=== PATIENT | male | born 1950 ===

== ENCOUNTER 2024-12-31 08:17 | Inpatient (IN) | payer OTHER, SELFPAY ==
--- NOTE | 2024-11-26 14:11 | CM ---
Demographics: confirmed
Living situation: Lives with , Tierra
Support Person Post Operatively: Tierra
[facility]
SNF: [facility]
Outpatient: Home care or placement
Has patient purchased required equipment: yes
PCP: Active
Pharmacy: [facility]
Post Operative Discharge Plan: Placement or extended home care.
[2024-12-07 12:48] VITALS: BMI 30.2
--- NOTE | 2024-12-07 14:28 | CM ---
CM was updated by orthopedic PA that patient will need home care. Patient has been known to [facility]. CM sent preliminary referral via [facility] to [facility].
[2024-12-07 15:05] LABS: Hematocrit 42.5 % (39.0-52.0); Hemoglobin 14.4 g/dL (13.0-18.0); Mean Corp Hgb Conc. 33.9 g/dL (33.0-37.0); Mean Corpuscular Volume 91.6 fL (80.0-94.0); Platelet Count 253 10^3/uL (130-400); Red Cell Dist. Width 13.1 % (11.5-14.5)
[2024-12-07 15:35] LABS: ALT (SGPT) < 10 U/L (0-50); AST (SGOT) 21 U/L (17-59); Albumin 4.4 g/dl (3.5-5.0); Alkaline Phosphatase 149 U/L (38-126); Blood Urea Nitrogen 20 mg/dl (9-20); Calcium 9.9 mg/dl (8.4-10.2); Carbon Dioxide 26 mmol/L (22-30); Chloride 107 mmol/L (98-107); Estimated Creatinine Clearance 84 ml/min; Glucose 82 mg/dl (70-99); Potassium 4.4 mmol/L (3.5-5.1); Sodium 137 mmol/L (135-145); Total Protein 6.7 g/dl (6.3-8.2); eGFR > 60.00
[2024-12-07 16:43] VITALS: BMI 30.2
[2024-12-08 10:19] LABS: Glycohemoglobin (HgbA1c) 5.6 % (4.0-5.6)
[2024-12-31] VITALS (14 sets, daily range): BP systolic 97–176; BP diastolic 57–93
[2024-12-31] MEDS: CELEBREX 200 MG PO (08:55)
[2024-12-31] MEDS: NORMOSOL-R/PLASMALYTE-A 1000 IV ×2 (09:15→16:10)
--- NOTE | 2024-12-31 09:51 | W.PN.ORTHO ---
Today's Communication / Plan
-
d/c when stable
Assessment
.
Dressing:
Clean, dry and intact.
Assessment:
Ambulatory dysfunction.
Parkinson's disease.
Balance and gait disturbance.
-Fall precautions
Recurrent and chronic bilateral DVT.
Factor V Leiden.
-Eliquis
-SCD contraindicated due to known residual clot/risk of propagation.
Coronary artery disease-LAD stent 2016.
-due to need for Eliquis, he will resume Plavix POD#7 and remain on baby asa until that time.
Hx Staph infection s/p back surgery
-Cefadroxil OP Rx abx ppx
BPH
-Flomax standing order and prn
Plan
.
Surgery / Date: L TKA Dr Cole 12/31/24
DVT Prophylaxis: Other (Eliquis)
Activity:
Out of bed.
PT/OT
Discharge Plan: Home w/ VN
Vital Signs and Labs
.
Vital Signs and Labs:
Lab Results
12/07/24 13:03
12/07/24 13:03
Temp Pulse Resp BP Pulse Ox
98.5 F 66 16 174/90 99
12/31/24 08:49 12/31/24 08:49 12/31/24 08:49 12/31/24 08:49 12/31/24 08:49
--- NOTE | 2024-12-31 10:19 | W.DS.TRANS ---
DC Summary - Home Service Consultant
-
Discharge Instructions:
Discharge Diagnosis/Procedures L TKA Dr Cole 12/31/24
Diet As tolerated
Activity With Walker
Driving Restrictions No driving
Bathing Restrictions OK to Shower
Other Services PT,VN
Instructions:
Stand-Alone Forms: Total Hip/Knee Replacement D/C
Changes to Home Medications: Yes
Discharge Medications:
DC Medications w/original date entered in [email or web address]
carbidopa 25 mg-levodopa 100 mg tablet 1.5 tab PO TID@0400,1200,199912/06/24
certolizumab pegol 400 mg/2 mL (200 mg/mL x2) subcutaneous syringe kit (Cimzia) 400 mg SC Q28D 12/06/24
cholecalciferol (vitamin D3) 50 mcg (2,000 unit) capsule (Vitamin D3) 100 mcg PO BID@1200,0000 12/06/24
clopidogrel 75 mg tablet (Plavix) 75 mg PO NOON 12/06/24
Held on 12/31/24. Instructions: Resume on 01/07/25.
docusate sodium 100 mg capsule (Colace) 100 mg PO BID@1200,0000 12/06/24
famotidine 20 mg tablet 20 mg PO BID@1200,0000 12/06/24
furosemide 40 mg tablet 40 mg PO NOON 12/06/24
magnesium 250 mg tablet 250 mg PO NOON 12/06/24
mupirocin 2 % topical ointment 1 applic topical BID infection prevention #1 tube 12/06/24
oxycodone 10 mg tablet,crush resistant,extended release 12 hr (OxyContin) 10 mg PO TID@0400,1200,199912/06/24
cefadroxil 500 mg capsule 500 mg PO BID infection prevention #14 caps 12/07/24
dexamethasone 4 mg tablet 4 mg PO BID inflammation #6 tabs 12/07/24
gabapentin 300 mg capsule 300 mg PO HS sleep/pain #10 caps 12/07/24
Saccharomyces boulardii 250 mg capsule (Florastor) 250 mg PO BID #1 cap 12/31/24
acetaminophen 325 mg tablet (Tylenol) 650 mg (2 x 325 mg) PO QID #1 tab 12/31/24
apixaban 5 mg tablet (Eliquis) 2.5 mg (1/2 x 5 mg) PO BID@1200,0000 Blood clot prevention/tx #0 tabs 12/31/24
aspirin 81 mg tablet 81 mg PO DAILY CAD/stent #6 tabs 12/31/24
isosorbide mononitrate 30 mg tablet,extended release 24 hr 30 mg PO NOON #0 tabs 12/31/24
magnesium hydroxide 400 mg/5 mL oral suspension (Milk of Magnesia) 30 ml PO HS PRN constipation #1 mL 12/31/24
oxycodone 5 mg tablet 5 mg PO Q6H PRN 1 tab moderate pain, 2 tabs severe pain #30 tabs 12/31/24
sennosides 8.6 mg tablet (Senokot) 17.2 mg (2 x 8.6 mg) PO BID laxative #2 tabs 12/31/24
Home Medication Changes
mupirocin 2 % topical ointment 1 applic topical BID infection prevention #1 tube 12/06/24
cefadroxil 500 mg capsule 500 mg PO BID infection prevention #14 caps 12/07/24
dexamethasone 4 mg tablet 4 mg PO BID inflammation #6 tabs 12/07/24
gabapentin 300 mg capsule 300 mg PO HS sleep/pain #10 caps 12/07/24
Saccharomyces boulardii 250 mg capsule (Florastor) 250 mg PO BID #1 cap 12/31/24
acetaminophen 325 mg tablet (Tylenol) 650 mg (2 x 325 mg) PO QID #1 tab 12/31/24
apixaban 5 mg tablet (Eliquis) 2.5 mg (1/2 x 5 mg) PO BID@1200,0000 Blood clot prevention/tx #0 tabs 12/31/24
aspirin 81 mg tablet 81 mg PO DAILY CAD/stent #6 tabs 12/31/24
isosorbide mononitrate 30 mg tablet,extended release 24 hr 30 mg PO NOON #0 tabs 12/31/24
magnesium hydroxide 400 mg/5 mL oral suspension (Milk of Magnesia) 30 ml PO HS PRN constipation #1 mL 12/31/24
oxycodone 5 mg tablet 5 mg PO Q6H PRN 1 tab moderate pain, 2 tabs severe pain #30 tabs 12/31/24
sennosides 8.6 mg tablet (Senokot) 17.2 mg (2 x 8.6 mg) PO BID laxative #2 tabs 12/31/24
Pending Results: No
[2024-12-31] MEDS: ROXICODONE 5 MG PO (14:35)
[2024-12-31] MEDS: CYKLOKAPRON 1300 MG PO ×2 (16:04→19:45)
[2024-12-31] MEDS: DILAUDID 0.5 MG IV (16:04)
[2024-12-31] MEDS: FLOMAX 0.4 MG PO (16:08)
[2024-12-31] MEDS: IMDUR (EXTENDED RELEASE) 30 MG PO (16:08)
[2024-12-31] MEDS: SINEMET 25-100 1.5 TABLET PO ×2 (16:08→19:45)
[2024-12-31] MEDS: TYLENOL PO ×2 (16:09)
[2024-12-31] MEDS: OXYCONTIN (CONTROLLED RELEASE) 10 MG PO ×2 (16:09→20:10)
--- NOTE | 2024-12-31 16:30 | PTCARENOTE ---
Patient arrived from PACU s/p L TKA at approximately 14:50. Large amount of sanguineous drainage collecting underneath the dressing. Notified Jasmin Richardson. Instructed to change dressing. Changed dressing under sterile technique. Shortly
thereafter sanguineous drainage re-accumulated underneath the dressing. Re-notified Jasmin Richardson. Instructed to place pressure dressing and orders for PO TXA to be placed. Placed LORIN for pressure dressing and administered PO TXA.
[2024-12-31] MEDS: ANCEF 5 IV (17:44)
[2024-12-31] MEDS: LOW STRENGTH ASPIRIN 81 MG PO (17:44)
--- NOTE | 2024-12-31 17:45 | PTCARENOTE ---
Spoke with Dr. Fabian's about patient's dressing and drainage over the phone. Okay to administer PO Aspirin and Eliquis at HS. Dr. Cole to come to bedside this evening.
--- NOTE | 2024-12-31 19:33 | W.PN.UPDATE ---
Update Note
Progress Note Update
Status post left TKA earlier today. Patient with moderate bloody drainage contained within dressing. Fresh, sterile primaseal dressing applied. Pressure dressing with Stephen wrap applied over top. Patient with history of multiple DVTs in the past.
Will continue with aggressive anticoagulation (Eliquis/aspirin). I would prefer this patient to have some bloody drainage with the aggressive anticoagulation rather than risking a clot with his history of factor V Leiden and DVTs.
[2024-12-31] MEDS: ELIQUIS 2.5 MG PO (19:45)
[2024-12-31] MEDS: DECADRON 4 MG IV (19:45)
[2024-12-31] MEDS: TYLENOL 650 MG PO (19:45)
[2024-12-31] MEDS: COLACE 100 MG PO (19:45)
[2024-12-31] MEDS: BACTROBAN 2% OINTMENT 1 APPLIC NASAL (19:45)
[2024-12-31] MEDS: PEPCID 20 MG PO (20:10)
[2024-12-31] MEDS: SENOKOT 17.2 MG PO (20:10)
[2024-12-31] MEDS: NEURONTIN 300 MG PO (22:23)
[2024-12-31] MEDS: ROXICODONE 10 MG PO (23:24)
[2025-01-01] VITALS (8 sets, daily range): BP systolic 108–144; BP diastolic 61–86; PULSE 79–80; O2SAT 96
[2025-01-01] MEDS: TYLENOL PO ×6 (00:10→20:00)
[2025-01-01] MEDS: PEPCID PO (00:11)
[2025-01-01] MEDS: ANCEF 5 IV (01:20)
[2025-01-01] MEDS: OXYCONTIN (CONTROLLED RELEASE) 10 MG PO ×3 (03:48→19:39)
[2025-01-01] MEDS: SINEMET 25-100 1.5 TABLET PO ×3 (03:48→19:39)
--- NOTE | 2025-01-01 07:55 | CM ---
Cm was updated by PA that Dr. Cole is requesting acute rehab. As per review of chart, patient has not been evaluated by PT/OT. CHARLIE sent referral to [facility] for preliminary review.
[2025-01-01 08:03] LABS: Hemoglobin 12.2 g/dL (13.0-18.0)
--- NOTE | 2025-01-01 09:09 | CM ---
Addendum entered by Sloane Oropeza RN 01/02/25 13:46:
CM left message at [facility] [employer] review for status update.
Addendum entered by Sloane Oropeza RN 01/02/25 12:47:
[facility] is able to accept for En[facility]. Patient is agreeable. CM sent authorization request to [employer].
PLAN: [facility], pending authorization.
Addendum entered by Sloane Oropeza RN 01/01/25 15:29:
CM is awaiting admission feedback from [facility]. CM will continue to remain available as needed.
Addendum entered by Sloane Oropeza RN 01/01/25 13:17:
CM was advised that patient has been recommended by PT for Acute Rehab. CM spoke with Ines from [facility] who will review for admission. CM will await feedback.
CM sent referral to [facility] for admission review as well.
Original Note:
CM spoke with patient who is agreeable to placement if needed. CM advised that [facility] may not accept and he may have to go to skilled. He stated that he would be agreeable to placement if needed. CM will await PT/OT recommendations.
[2025-01-01] MEDS: LOW STRENGTH ASPIRIN 81 MG PO (09:36)
[2025-01-01] MEDS: COLACE 100 MG PO ×2 (09:36→19:39)
[2025-01-01] MEDS: ELIQUIS 2.5 MG PO ×2 (09:36→19:39)
[2025-01-01] MEDS: DECADRON 4 MG IV ×2 (09:36→19:39)
[2025-01-01] MEDS: SENOKOT 17.2 MG PO ×2 (09:36→19:39)
[2025-01-01] MEDS: FLOMAX 0.4 MG PO (09:36)
[2025-01-01] MEDS: BACTROBAN 2% OINTMENT 1 APPLIC NASAL ×2 (09:37→19:39)
[2025-01-01] MEDS: ROXICODONE 10 MG PO ×2 (09:45→14:36)
[2025-01-01] MEDS: LASIX 20 MG PO (12:17)
[2025-01-01] MEDS: IMDUR (EXTENDED RELEASE) PO (12:17)
[2025-01-01] MEDS: MAGNESIUM OXIDE 200 MG PO (12:20)
[2025-01-01] MEDS: PEPCID 20 MG PO ×2 (12:24→23:22)
--- NOTE | 2025-01-01 15:03 | W.PN.ORTHO ---
Today's Communication / Plan
-
due to functional needs with underlying Parkinson's/cognitive deficits, balance/gait disturbance in setting of orthopedic surgery--patient will require additional rehab needs prior to returning home at an independent level w/ RW------[facility] currently
under review
Assessment
.
Distal Motor Intact: Yes
Dressing:
Clean, dry and intact.
Assessment:
Incisional bleeding 12/31-s/p 2 dressing changes, TXA x2 and light pressure dressing-currently stable POD#1-hgb good with no hemodynamic compromise
Ambulatory dysfunction.
Parkinson's disease.
Balance and gait disturbance.
-Fall precautions
Recurrent and chronic bilateral DVT.
Factor V Leiden.
-Eliquis
-SCD contraindicated due to known residual clot/risk of propagation.
Coronary artery disease-LAD stent 2015.
-due to need for Eliquis, he will resume Plavix POD#7 and remain on baby asa until that time.
Hx Staph infection s/p back surgery
-Cefadroxil OP Rx abx ppx
BPH
-Flomax standing order and prn--voiding well
Plan
.
Surgery / Date: L TKA Dr Cole 12/31/24
DVT Prophylaxis: Other (Eliquis)
Activity:
Out of bed.
PT/OT
Discharge Plan: Rehab
Subjective
.
.:
Patient resting comfortably.
Vital Signs and Labs
.
Vital Signs and Labs:
Lab Results
01/01/25 07:42
12/07/24 13:03
Temp Pulse Resp BP Pulse Ox
97.8 F 75 16 119/71 98
01/01/25 11:00 01/01/25 12:17 01/01/25 11:00 01/01/25 12:17 01/01/25 11:00
Non-invasive Hgb result: 14.1
Physical Exam
-
HEENT: No pallor, cyanosis, or jaundice. Throat clear.
NECK: Supple. No JVD.
RESPIRATORY: Lungs clear to auscultation.
CVS: S1, S2 normal. RRR.� No murmur, rub or gallop.
ABDOMEN: Soft, non-tender. No distension. BS+/normal.
EXTREMITIES: strength equal, no calf pain with palpation
TROUBLE DISPATCHER: AOx3. No focal deficits. rack cleaner grossly intact
[2025-01-01] MEDS: NEURONTIN 300 MG PO (21:20)
[2025-01-02] VITALS (8 sets, daily range): BP systolic 118–151; BP diastolic 61–85; PULSE 74–76; O2SAT 91
[2025-01-02] MEDS: SINEMET 25-100 1.5 TABLET PO ×3 (03:13→20:52)
[2025-01-02] MEDS: OXYCONTIN (CONTROLLED RELEASE) 10 MG PO ×3 (03:13→20:51)
[2025-01-02] MEDS: FLOMAX 0.4 MG PO (07:18)
[2025-01-02] MEDS: SENOKOT 17.2 MG PO ×2 (07:18→20:52)
[2025-01-02] MEDS: LOW STRENGTH ASPIRIN 81 MG PO (07:18)
[2025-01-02] MEDS: COLACE 100 MG PO ×2 (07:18→20:51)
[2025-01-02] MEDS: ELIQUIS 2.5 MG PO (07:18)
[2025-01-02] MEDS: LASIX 20 MG PO (12:06)
[2025-01-02] MEDS: MAGNESIUM OXIDE 200 MG PO (12:07)
[2025-01-02] MEDS: IMDUR (EXTENDED RELEASE) PO ×2 (12:08→18:16)
[2025-01-02] MEDS: PEPCID 20 MG PO (12:10)
--- NOTE | 2025-01-02 14:25 | W.PN.ORTHO ---
Today's Communication / Plan
-
due to functional needs with underlying Parkinson's/cognitive deficits, balance/gait disturbance in setting of orthopedic surgery--patient will require additional rehab needs prior to returning home at an independent level w/ RW
------[facility] has bed and has accepted patient-currently awaiting auth
Assessment
.
Dressing:
Clean, dry and intact.
Assessment:
Incisional bleeding 12/31-s/p 2 dressing changes, TXA x2 and light pressure dressing
-currently stable POD#2-hgb in range with no hemodynamic compromise
Ambulatory dysfunction.
Parkinson's disease.
Balance and gait disturbance.
-Fall precautions
Recurrent and chronic bilateral DVT.
Factor V Leiden.
-Eliquis-resume full dose tonight
-SCD contraindicated due to known residual clot/risk of propagation.
Coronary artery disease-LAD stent 2015.
-due to need for Eliquis, he will resume Plavix POD#7 and remain on baby asa until that time.
Hx Staph infection s/p back surgery
-Cefadroxil OP Rx abx ppx
BPH
-Flomax standing order and prn--voiding well
Plan
.
Surgery / Date: L TKA Dr Cole 12/31/24
DVT Prophylaxis: Other (Eliquis)
Activity:
Out of bed.
PT/OT
Discharge Plan: Rehab ([facility])
Subjective
.
.:
Patient resting comfortably.
Vital Signs and Labs
.
Vital Signs and Labs:
Lab Results
01/01/25 07:42
12/07/24 13:03
Temp Pulse Resp BP Pulse Ox
98.3 F 76 16 128/68 95
01/02/25 11:10 01/02/25 12:06 01/02/25 11:10 01/02/25 12:06 01/02/25 11:10
Non-invasive Hgb result: 13.6
Physical Exam
-
HEENT: No pallor, cyanosis, or jaundice. Throat clear.
NECK: Supple. No JVD.
RESPIRATORY: Lungs clear to auscultation.
CVS: S1, S2 normal. RRR.� No murmur, rub or gallop.
ABDOMEN: Soft, non-tender. No distension. BS+/normal.
EXTREMITIES: strength equal, no calf pain with palpation-LLE 2+ edema/induration
proximal lateral incisional drainage beneath aquacell marked and unchanged
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 No focal deficits. fine arts teacher grossly intact
[2025-01-02] MEDS: ELIQUIS 5 MG PO (20:52)
[2025-01-02] MEDS: NEURONTIN 300 MG PO (20:52)
[2025-01-02] MEDS: DILAUDID 0.5 MG IV (21:47)
[2025-01-03] VITALS (9 sets, daily range): BP systolic 116–148; BP diastolic 68–89; PULSE 75–77; O2SAT 96
[2025-01-03] MEDS: PEPCID 20 MG PO ×2 (00:34→13:13)
[2025-01-03] MEDS: OXYCONTIN (CONTROLLED RELEASE) 10 MG PO ×3 (03:34→20:23)
[2025-01-03] MEDS: SINEMET 25-100 1.5 TABLET PO ×3 (03:34→20:23)
[2025-01-03] MEDS: ELIQUIS 5 MG PO ×2 (07:00→20:23)
[2025-01-03] MEDS: LOW STRENGTH ASPIRIN 81 MG PO (07:00)
[2025-01-03] MEDS: SENOKOT 17.2 MG PO ×2 (07:00→20:23)
[2025-01-03] MEDS: FLOMAX 0.4 MG PO (07:00)
[2025-01-03] MEDS: COLACE 100 MG PO ×2 (07:00→20:23)
--- NOTE | 2025-01-03 10:39 | CM ---
Addendum entered by Sloane Oropeza RN 01/03/25 11:26:
CHARLIE emailed [facility] requesting an update on authorization.
Original Note:
Charlie left message for [facility] regarding authorization updated. CM updated patient with plan.
PLAN: [facility], Acute Rehab if authorized.
[2025-01-03] MEDS: IMDUR (EXTENDED RELEASE) PO (13:01)
[2025-01-03] MEDS: LASIX 20 MG PO (13:13)
[2025-01-03] MEDS: MAGNESIUM OXIDE 200 MG PO (13:14)
--- NOTE | 2025-01-03 13:14 | W.PN.ORTHO ---
Today's Communication / Plan
-
due to functional needs with underlying Parkinson's/cognitive deficits, balance/gait disturbance in setting of orthopedic surgery--patient will require additional rehab needs prior to returning home at an independent level w/ RW
------[facility] in am if stable
Assessment
.
Dressing:
Clean, dry and intact.
Assessment:
Incisional bleeding 12/31-s/p 2 dressing changes, TXA x2 and light pressure dressing
-stable as of POD#1-hgb in range with no hemodynamic compromise
Ambulatory dysfunction.
Parkinson's disease.
Balance and gait disturbance.
-Fall precautions
Recurrent and chronic bilateral DVT.
Factor V Leiden.
-Eliquis-full dose resumed 01/02/25 pm
-SCD contraindicated due to known residual clot/risk of propagation.
Coronary artery disease-LAD stent 2015.
-due to need for Eliquis, he will resume Plavix POD#7 and remain on baby asa until that time.
Hx Staph infection s/p back surgery
-Cefadroxil OP Rx abx ppx
BPH
-Flomax standing order and prn--voiding well
Plan
.
Surgery / Date: L TKA Dr Cole 12/31/24
DVT Prophylaxis: Other (Eliquis)
Activity:
Out of bed.
PT/OT
Discharge Plan: Rehab
Subjective
.
.:
Patient resting comfortably.
Vital Signs and Labs
.
Vital Signs and Labs:
Lab Results
01/01/25 07:42
12/07/24 13:03
Temp Pulse Resp BP Pulse Ox
98.0 F 72 15 146/68 98
01/03/25 12:05 01/03/25 12:05 01/03/25 12:05 01/03/25 12:05 01/03/25 12:05
Non-invasive Hgb result: 13.6
Physical Exam
-
HEENT: No pallor, cyanosis, or jaundice. Throat clear.
NECK: Supple. No JVD.
RESPIRATORY: Lungs clear to auscultation.
CVS: S1, S2 normal. RRR.� No murmur, rub or gallop.
ABDOMEN: Soft, non-tender. No distension. BS+/normal.
EXTREMITIES: strength equal,
no calf pain with palpation-LLE 2+ edema/induration
LEAD CASTER: AOx3. No focal deficits. saw edge fuser circular grossly intact
--- NOTE | 2025-01-03 15:51 | CM ---
Addendum entered by Sloane Oropeza RN 01/03/25 16:19:
CM updated patient.
Original Note:
Approved per MD review.
Auth Released at Level: ACUTE REHAB
Dates of Service: 01/03/2025 through 01/09/2025
7 RF DAYS OF 01/09/2025 --DRG FACILITY--
Next Review Date: ADMIT NOTIFICATION DUE UPON ADMIT AND AGAIN FOR CLINICAL UPDATES ON 01/09/2025 to: fax: [phone], email: [email or web address] or call Zeina Sigala at [phone] EXT [phone] (please note this is an
extension)
Authorization # [id number]
Satish Martinez
[2025-01-03] MEDS: ROXICODONE 5 MG PO (18:04)
[2025-01-03] MEDS: NEURONTIN 300 MG PO (21:32)
[2025-01-04] MEDS: PEPCID 20 MG PO (00:32)
[2025-01-04 03:00] VITALS: BP 143/78
[2025-01-04] MEDS: OXYCONTIN (CONTROLLED RELEASE) 10 MG PO (03:45)
[2025-01-04] MEDS: SINEMET 25-100 1.5 TABLET PO (03:45)
[2025-01-04] MEDS: FLOMAX 0.4 MG PO (07:07)
[2025-01-04] MEDS: ELIQUIS 5 MG PO (07:07)
[2025-01-04] MEDS: SENOKOT 17.2 MG PO (07:07)
[2025-01-04] MEDS: LOW STRENGTH ASPIRIN 81 MG PO (07:08)
[2025-01-04] MEDS: COLACE 100 MG PO (07:08)
[2025-01-04 07:10] VITALS: BP 145/77
--- NOTE | 2025-01-04 09:22 | CM ---
Cm reviewed medical records. Plan for transfer to [facility] today when medically ready.
PLAN: [facility].
--- NOTE | 2025-01-04 11:21 | W.PN.ORTHO ---
Today's Communication / Plan
-
due to functional needs with underlying Parkinson's/cognitive deficits, balance/gait disturbance in setting of orthopedic surgery--patient will require additional rehab needs prior to returning home at an independent level w/ RW
------d/c [facility]
Assessment
.
Distal Motor Intact: Yes
Dressing:
Clean, dry and intact.
Assessment:
Incisional bleeding 12/31-s/p 2 dressing changes, TXA x2 and light pressure dressing
-stable as of POD#1-hgb in range with no hemodynamic compromise
Ambulatory dysfunction.
Parkinson's disease.
Balance and gait disturbance.
-Fall precautions
Recurrent and chronic bilateral DVT.
Factor V Leiden.
-Eliquis-full dose resumed 01/02/25 pm
-SCD contraindicated due to known residual clot/risk of propagation.
Coronary artery disease-LAD stent 2015.
-due to need for Eliquis, he will resume Plavix POD#7 and remain on baby asa until that time.
-stable on tele
Hx Staph infection s/p back surgery
-Cefadroxil OP Rx abx ppx
BPH
-Flomax standing order and prn--voiding well
Plan
.
Surgery / Date: L TKA Dr Cole 12/31/24
DVT Prophylaxis: Other (Eliquis)
Activity:
Out of bed.
PT/OT
Discharge Plan: Rehab
Subjective
.
.:
Patient resting comfortably.
Vital Signs and Labs
.
Vital Signs and Labs:
Lab Results
01/01/25 07:42
12/07/24 13:03
Temp Pulse Resp BP Pulse Ox
98.2 F 61 18 145/77 95
01/04/25 07:10 01/04/25 07:10 01/04/25 07:10 01/04/25 07:10 01/04/25 07:10
Non-invasive Hgb result: 12.9
Physical Exam
-
HEENT: No pallor, cyanosis, or jaundice. Throat clear.
NECK: Supple. No JVD.
RESPIRATORY: Lungs clear to auscultation.
CVS: S1, S2 normal. RRR.� No murmur, rub or gallop.
ABDOMEN: Soft, non-tender. No distension. BS+/normal.
EXTREMITIES: strength equal, no calf pain with palpation
LLE 2+ edema/induration-improving--proximal area of blood beneath aquacel-stable with no additional drainage
FRAME FIXER: AOx3. No focal deficits. pump service supervisor grossly intact
[2025-01-04 11:39] VITALS: BP 129/80
== END 2025-01-04 11:38 | DRG 470 ==
LOC: 2 SOUTH 08:17
PROVIDERS: Physician Assistant Medical; ADMITTING PHYSICIAN Specialist; FAMILY PHYSICIAN Family Medicine; REFERRING PHYSICIAN Internal Medicine Cardiovascular Disease
PROC: 0SRD0J9 Replacement of Left Knee Joint with Synthetic Substitute, Cemented, Open Approach (ICD-10-PCS; 2024-12-31)
DX: M17.12 Unilateral primary osteoarthritis, left knee (principal); D68.51 Activated protein C resistance; I82.503 Chronic embolism and thrombosis of unspecified deep veins of lower extremity, bilateral; I10 Essential (primary) hypertension; I25.10 Atherosclerotic heart disease of native coronary artery without angina pectoris; M48.061 Spinal stenosis, lumbar region without neurogenic claudication; R26.89 Other abnormalities of gait and mobility; E78.5 Hyperlipidemia, unspecified; G20.A1 Parkinson's disease without dyskinesia, without mention of fluctuations; G89.29 Other chronic pain; K21.9 Gastro-esophageal reflux disease without esophagitis; R33.8 Other retention of urine; N40.1 Benign prostatic hyperplasia with lower urinary tract symptoms; E66.9 Obesity, unspecified; Z79.01 Long term (current) use of anticoagulants; Z79.02 Long term (current) use of antithrombotics/antiplatelets; Z79.899 Other long term (current) drug therapy; Z79.82 Long term (current) use of aspirin; Z95.828 Presence of other vascular implants and grafts; Z95.5 Presence of coronary angioplasty implant and graft; Z87.891 Personal history of nicotine dependence; Z68.30 Body mass index [BMI] 30.0-30.9, adult; Z88.8 Allergy status to other drugs, medicaments and biological substances; Z88.5 Allergy status to narcotic agent
CPT/HCPCS: 36415; 73560; 80053; 83036; 85018; 85027; 87070; 93005; 97110; 97116; 97163; 97167; 97530; 97535; C1713; C1776

== ENCOUNTER 2025-01-25 23:45 | Inpatient (IN) | payer OTHER, SELFPAY ==
[2025-01-25 19:33] VITALS: BP 159/99
--- NOTE | 2025-01-25 19:44 | ED.MUSCINJ ---
HPI-Injury
<Sonya Berry GLASS FRAME FITTER - Last Filed: 01/26/25 17:28>
General
Chief Complaint: Musculo-Skeletal Complaint
Source: patient
Exam Limitations: none
Time Seen by Provider: 01/25/25 19:39
Nursing documentation reviewed up to this point in time: agreed with
History of Present Illness-Injury
Initial Injury comments:
74-year-old male with history DVT, CAD, cardiac stent, HTN of factor V Leiden, on Xarelto and Plavix, left knee replacement by Dr. Cole on 12/31/24, discharged from rehab to home 8 days ago. He states he has chronic left leg swelling including
his foot due to 'bad valves.' He states his lower leg is no more swollen than usual.
Patient had follow-up appoint 7 days ago and was able to ambulate completely independently, had a good visit, ambulated back out to his car and as he was getting in the passenger side his left foot caught as he put it into the car and twisted his
left knee and he felt sudden severe pain in the knee. Over this past week the knee has become more swollen and painful.
Patient is under pain management for back pain takes OxyContin 10 mg and hydrocodone 5 mg as needed for pain, his last dose was 8 AM this morning
Past History
<Sonya Berry, GLASS FRAME FITTER - Last Filed: 01/26/25 17:28>
Past History
ED Past Medical History: Hypercholesterolemia, Other (DVT, Parkinson's) and Other (Chronic back pain followed by pain management)
ED Past Surgical History: Cardiac (Stent), Cholecystectomy, Orthopedic (Left TKA 12/31/2024) and Other ([place] filter)
Social History
Tobacco: Non-smoker
Personal:
Living: with family
Review of Systems
<Sonya Berry, GLASS FRAME FITTER - Last Filed: 01/26/25 17:28>
Review of Systems
Allergies reviewed?: Yes
All Other Systems: ROS reviewed and negative except as documented in HPI and ROS
Phy Exam
<Sonya Berry, GLASS FRAME FITTER - Last Filed: 01/26/25 17:28>
Physical Exam
Physical Exam:
GENERAL: No acute distress. A&Ox3.
CONSTITUTIONAL: Afebrile.
EYES: clear, conjunctivae normal
ENMT: moist mucus membranes
RESPIRATORY: Regular respirations, nonlabored, lungs clear.
CARDIOVASCULAR: Regular rate and rhythm, no murmurs, no rubs.
GI: Soft, nontender
MUSCULOSKELETAL: Left knee is swollen and painful with any movement, mildly ecchymotic, old ecchymosis noted yellowish-green laterally with mild new purplish red ecchymosis medially. Moves with ease. Well perfused. Vertical surgical incision scar
is intact and appears to be healing well. Distally patient has chronic edema.
SKIN: Warm, dry, pink
PSYCH: Normal mood and affect. Well kept, interactive and appropriate
NEUROLOGIC: Awake, alert and oriented. No focal neurological deficits
Injury Course
<Sonya Berry, GLASS FRAME FITTER - Last Filed: 01/26/25 17:28>
Orders/Labs/Results
Orders:
Orders
01/25/25 19:43
Knee, Left 4 or More Views [CR Knee - Left 4 Or More View*] Urgent
Comment:
Reason For Exam: Pain and swelling after a twisting injury. On Xar
01/25/25 20:08
Complete Blood Count/With Diff Urgent
Comprehensive Metabolic Panel Urgent
01/25/25 21:09
Gabapentin [Neurontin] 300 mg PO NOW STA
Oxycodone Controlled Release [Oxycontin (Controlled Release)] 10 mg PO NOW STA
Oxycodone [Roxicodone] 5 mg PO NOW STA
01/25/25 21:10
Knee Immobilizer Left-Treatmen ONCE
01/25/25 22:46
CT Lower Ext W/o Iv Cont Lt Urgent
Comment:
Reason For Exam: fracture of distal femur
Abnormal Lab Results
01/25/25
20:08
RBC 3.99 L 10^6/uL
(4.70-6.10)
Hgb 12.2 L g/dL
(13.0-18.0)
Hct 37.1 L %
(39.0-52.0)
MCHC 32.9 L g/dL
(33.0-37.0)
RDW 14.8 H %
(11.5-14.5)
Absolute Monos (auto) 0.9 H 10^3/uL
(0.1-0.6)
Monocytes % 12.3 H %
(1.7-9.3)
Chloride 108 H mmol/L
(98-107)
BUN 40 H mg/dl
(9-20)
Glucose 104 H mg/dl
(70-99)
Alkaline Phosphatase 148 H U/L
(38-126)
01/25/25 20:08
01/25/25 20:08
Sangeetalt;Franki Castellanos PA-C - Last Filed: 01/25/25 22:51>
Orders/Labs/Results
Orders:
Orders
01/25/25 19:43
Knee, Left 4 or More Views [CR Knee - Left 4 Or More View*] Urgent
Comment:
Reason For Exam: Pain and swelling after a twisting injury. On Xar
01/25/25 20:08
Complete Blood Count/With Diff Urgent
Comprehensive Metabolic Panel Urgent
01/25/25 21:09
Gabapentin [Neurontin] 300 mg PO NOW STA
Oxycodone Controlled Release [Oxycontin (Controlled Release)] 10 mg PO NOW STA
Oxycodone [Roxicodone] 5 mg PO NOW STA
01/25/25 21:10
Knee Immobilizer Left-Treatmen ONCE
01/25/25 22:46
CT Lower Ext W/o Iv Cont Lt Urgent
Comment:
Reason For Exam: fracture of distal femur
Abnormal Lab Results
01/25/25
20:08
RBC 3.99 L 10^6/uL
(4.70-6.10)
Hgb 12.2 L g/dL
(13.0-18.0)
Hct 37.1 L %
(39.0-52.0)
MCHC 32.9 L g/dL
(33.0-37.0)
RDW 14.8 H %
(11.5-14.5)
Absolute Monos (auto) 0.9 H 10^3/uL
(0.1-0.6)
Monocytes % 12.3 H %
(1.7-9.3)
Chloride 108 H mmol/L
(98-107)
BUN 40 H mg/dl
(9-20)
Glucose 104 H mg/dl
(70-99)
Alkaline Phosphatase 148 H U/L
(38-126)
01/25/25 20:08
01/25/25 20:08
<Alvin Rios, DO - Last Filed: 01/26/25 00:21>
Orders/Labs/Results
Orders:
Orders
01/25/25 19:43
Knee, Left 4 or More Views [CR Knee - Left 4 Or More View*] Urgent
Comment:
Reason For Exam: Pain and swelling after a twisting injury. On Xar
01/25/25 20:08
Complete Blood Count/With Diff Urgent
Comprehensive Metabolic Panel Urgent
01/25/25 21:09
Gabapentin [Neurontin] 300 mg PO NOW STA
Oxycodone Controlled Release [Oxycontin (Controlled Release)] 10 mg PO NOW STA
Oxycodone [Roxicodone] 5 mg PO NOW STA
01/25/25 21:10
Knee Immobilizer Left-Treatmen ONCE
01/25/25 22:46
CT Lower Ext W/o Iv Cont Lt Urgent
Comment:
Reason For Exam: fracture of distal femur
Abnormal Lab Results
01/25/25
20:08
RBC 3.99 L 10^6/uL
(4.70-6.10)
Hgb 12.2 L g/dL
(13.0-18.0)
Hct 37.1 L %
(39.0-52.0)
MCHC 32.9 L g/dL
(33.0-37.0)
RDW 14.8 H %
(11.5-14.5)
Absolute Monos (auto) 0.9 H 10^3/uL
(0.1-0.6)
Monocytes % 12.3 H %
(1.7-9.3)
Chloride 108 H mmol/L
(98-107)
BUN 40 H mg/dl
(9-20)
Glucose 104 H mg/dl
(70-99)
Alkaline Phosphatase 148 H U/L
(38-126)
01/25/25 20:08
01/25/25 20:08
<Sonya Berry, GLASS FRAME FITTER - Last Filed: 01/26/25 17:28>
MDM/Problems Addressed
Differential Diagnosis Includes:
Hemarthrosis, fracture, sprain
MDM/Problems Addressed:
74-year-old male with history DVT, CAD, cardiac stent, HTN of factor V Leiden, on Xarelto and Plavix, left knee replacement by Dr. Cole on 12/31/24, discharged from rehab to home 8 days ago. He states he has chronic left leg swelling including
his foot due to 'bad valves.' He states his lower leg is no more swollen than usual.
Patient had follow-up appoint 7 days ago and was able to ambulate completely independently, had a good visit, ambulated back out to his car and as he was getting in the passenger side his left foot caught as he put it into the car and twisted his
left knee and he felt sudden severe pain in the knee. Over this past week the knee has become more swollen and painful.
Patient is under pain management for back pain takes OxyContin 10 mg and hydrocodone 5 mg BID as needed for pain, his last dose was 8 AM this morning. Also takes Gabapentin 300 mg BID
CBC, CMP with no clinically significant abnormality save for BUN 40. Pt and informed of dehydration. Both agree he does not drink enough. Pt states it's because 'I'm incontinent.' state he is not incontinent, he just doesn't get up to go.
Pt has depends on. agrees, he refuses to drink enough
Large glass of water provided and he is refusing to drink it 'I'll wet the car.' He is using a urinal now and will be given one to go.
Case discussed with NELY Reyes who will assume care from this point.
Pt getting his usual dose of pain meds, knee immobilizer and we will attempt to ambulate with walker.
Either he can be discharged to f/u on Tuesday with ortho, or have to be admitted for ambulatory dysfunction and pain management.
Chronic conditions affecting care: HTN and Other (Recent left knee surgery, DVT, on Xarelto and Plavix)
<Sonya Berry GLASS FRAME FITTER - Last Filed: 01/26/25 17:28>
*Pulse Oximetry
SaO2: 97
Oxygen Mode of Delivery: Room air
<NELY Hernandez-C - Last Filed: 01/25/25 22:51>
*Pulse Oximetry
Patient hypoxic: no
*Critical Care Note
Total Time (30-74mins, 75-104mins- exclusive of procedures): Not Applicable
<Franki Castellanos PA-C - Last Filed: 01/25/25 22:51>
Update Note
Update Note:
I assumed care of patient. Patient is in significant pain to the left knee. Examination of the x-rays does demonstrate a cortical irregularity of the left distal femoral condyle to suggest fracture. Reexamined the patient. Clinical exam is
consistent with this finding on x-ray. Discussed with orthopedics. CT ordered more so for orthopedic planning but will admit to hospitalist.
ED Attending Note
<Soyna Berry NP - Last Filed: 01/26/25 17:28>
-
Portions of this chart may have been created with voice recognition software.� Occasional wrong word or��sound alike� substitutions may have occurred due to the inherent limitations of voice recognition software.
<Alvin Rios DO - Last Filed: 01/26/25 00:21>
ED Attending Note
Patient seen and examined by attending physician: Yes
ED Attending Note:
I have reviewed and agree with history treatment plan by Tien Castellanos and Julisa berry. My exam revealed 74-year-old male unable to bear weight, left knee pain and tenderness. X-ray shows possible small lateral femoral condyle fracture. CT scan
does not show definitive fracture. Patient unable to ambulate. Admit to hospitalist Ortho will see in AM.
Discharge Plan
Departure
Patient Disposition: Admit
Date of Disposition: 01/25/25
Time of Disposition: 22:48
Presentation/result/management discussed w/ accepting MD/DO: Hospitalist
Discharge Problem:
Femur fracture
Interventions
Interventions:
*Risk Screen - Suicide Last Done: 01/25/25 19:33
*General Assessment Last Done: 01/25/25 19:33
*Neglect/Abuse Screening Last Done: 01/25/25 19:33
*ED- Fall Risk Assessment Last Done: 01/25/25 22:30
*ED COVID-19 Vaccine History Last Done: 01/25/25 22:30
*ED Influenza Vaccine History Last Done: 01/25/25 22:30
*Nursing Disposition Last Done: 01/26/25 01:30
ED-Musculoskeletal Assessment Last Done: 01/25/25 20:14
Discharge Date and Time
Discharge Date/Time: 01/26/25 02:08
[2025-01-25 20:13] LABS: Hematocrit 37.1 % (39.0-52.0); Hemoglobin 12.2 g/dL (13.0-18.0); Mean Corp Hgb Conc. 32.9 g/dL (33.0-37.0); Mean Corpuscular Volume 93.0 fL (80.0-94.0); Nucleated Red Blood Cells % 0 % (-); Platelet Count 358 10^3/uL (130-400); Red Cell Dist. Width 14.8 % (11.5-14.5)
[2025-01-25 20:37] LABS: ALT (SGPT) 13 U/L (0-50); AST (SGOT) 19 U/L (17-59); Albumin 3.8 g/dl (3.5-5.0); Alkaline Phosphatase 148 U/L (38-126); Blood Urea Nitrogen 40 mg/dl (9-20); Calcium 9.8 mg/dl (8.4-10.2); Carbon Dioxide 30 mmol/L (22-30); Chloride 108 mmol/L (98-107); Glucose 104 mg/dl (70-99); Potassium 4.2 mmol/L (3.5-5.1); Sodium 142 mmol/L (135-145); Total Protein 6.3 g/dl (6.3-8.2); eGFR > 60.00
[2025-01-25] MEDS: NEURONTIN 300 MG PO (21:18)
[2025-01-25] MEDS: OXYCONTIN (CONTROLLED RELEASE) 10 MG PO (21:18)
[2025-01-25] MEDS: ROXICODONE 5 MG PO (21:18)
[2025-01-25 22:30] VITALS: BMI 32.5
[2025-01-25 22:47] VITALS: BP 145/89
--- NOTE | 2025-01-25 22:54 | HPS.HSE ---
Addendum entered and electronically signed by Omar Burks DO 01/26/25 00:21:
Patient seen and examined independently Agree with findings and plan as set forth by RAJEEV Smith.
Patient is a 74y M with PMH significant for Factor V Leiden, ASCVD and L TKA on 12/31/24 who presents to ED for evaluation of L knee pain x 1 week. Patient reports a 'twisting' injury while getting into his vehicle one week ago. Noted immediate
pain at that time on the lateral aspect of the L knee. Pain has increased since that time and patient now states that he is unable to bear weight due to pain. Imaging in the ED suggested lateral condyle fracture.
Ass:
Left Knee Pain - Possible Lateral Femoral Condyle Fracture
s/p L TKA 12/31/24
Parkinson's Disease
ASCVD
Benign Hypertension
Factor V Leiden
History of Extensive DVT
Plan:
Admit for further evaluation and treatment.
Supportive care, pain control, knee immobilizer, etc.
CT scan report pending / Ortho eval in AM.
? need for operative repair for lateral condyle fracture.
Hold Plavix and Eliquis acutely.
Begin bridging Heparin for now - can stop prior to surgery and / or resume usual Eliquis if it is decided surgery is not necessary.
Continue / complete course of cephalexin (30 days s/p TKA).
Continue Sinemet with no changes.
Original Note:
Family Physician
-
Family Physician: Gabriel Santa
Chief Complaint
-
left knee pain
History of Present Illness
74-year-old male with history DVT, CAD, cardiac stent, HTN of factor V Leiden, on Xarelto and Plavix, left knee replacement by Dr. Cole on 12/31/24 presented to us with left knee pain since last Tuesday. Patient had follow-up appoint last Tuesday
at [facility]. he was able to walk to the office and back to the car. as he was getting in the passenger side his left foot caught as he put it into the car and twisted his left knee and he felt sudden severe pain in the knee. Over this past
week the knee has become more swollen and painful. he is not able to bear any weight on his legs and move. denied LIANG, dizzy or syncope. denied fever, chills, chest pain, sob. denied abdominal pain,n,v,d. denied dysuria or hematuria.
X ray with the concern for Stable position of the left total knee arthroplasty. New mild osseous irregularity of the lateral femoral condyle, equivocal for a small fracture. Small knee joint effusion. Vascular calcifications.
patient recived a dose of gabapentin, oxycodone in ER. immoblizer placed. admitting for further managment.
Medical History
Past Medical History
Past Medical History: Reports Other
Additional Past Medical History:
DVT, sleep apnea, hld, barrets esophagus, Parkinson disease, back pain, arthritis,
Past Surgical History: Reports Other
Additional Past Surgical History:
spinal decompression, cholecystectomy, let TKA
Social History
Tobacco: Non-smoker
Alcohol: None
Drug: None
Personal:
Living: With Family
Family History
Family History: Not pertinent
Allergies / Home Medications
Allergies reflects when Allergies were last updated in [employer]
Home Medications with original date entered in [employer]
Allergy/Medication List:
Allergies
Allergy/AdvReac Type Severity Reaction Status Date / Time
acetaminophen (From Tylenol) Allergy elevated Verified 12/31/24 08:35
liver
enzymes
morphine (From MS Contin) Allergy Brain Verified 12/31/24 08:35
disconnect-
couldn't
walk or
move body
[id number] Reductase Allergy myalgias, Verified 12/31/24 08:35
Inhibitor felt out
of it
Home Medications
carbidopa 25 mg-levodopa 100 mg tablet 1.5 tab PO TID@0400,1200,2000 PARKINSONS 12/06/24
certolizumab pegol 400 mg/2 mL (200 mg/mL x2) subcutaneous syringe kit (Cimzia) 400 mg SC Q28D Antirheumatic 12/06/24
Held on 01/16/25. Instructions: Discussed with surgery or rheumatology when can resume
cholecalciferol (vitamin D3) 50 mcg (2,000 unit) capsule (Vitamin D3) 100 mcg PO BID@1200,0000 Supplement 12/06/24
docusate sodium 100 mg capsule (Colace) 100 mg PO BID@1200,0000 STOOL SOFTENER 12/06/24
oxycodone 10 mg tablet,crush resistant,extended release 12 hr (OxyContin) 10 mg PO TID@0400,1200,2000 Pain 12/06/24
Saccharomyces boulardii 250 mg capsule (Florastor) 250 mg PO BID #1 cap 12/31/24
sennosides 8.6 mg tablet (Senokot) 17.2 mg (2 x 8.6 mg) PO BID laxative #2 tabs 12/31/24
oxycodone 5 mg tablet 5 mg PO Q6H PRN moderate-severe pain #1 tab 01/02/25
apixaban 5 mg tablet (Eliquis) 5 mg PO BID@1200,0000 Heart disease/condition 30 days #60 tabs 01/16/25
baclofen 5 mg tablet 5 mg PO TID PRN Muscle tightness 30 days #90 tabs 01/16/25
cephalexin 500 mg capsule 500 mg PO TID Postop prophylaxis 30 days #90 caps 01/16/25
clopidogrel 75 mg tablet (Plavix) 75 mg PO NOON Heart disease/condition #0 tabs 01/16/25
gabapentin 300 mg capsule 300 mg PO HS sleep/pain 30 days #30 caps 01/18/25
dexamethasone 4 mg tablet 4 mg PO DAILY 01/25/25
Review of Systems
-
Constitutional: Reports No Symptoms
EENT: Reports No Symptoms
Respiratory: Reports No Symptoms
Cardiac: Reports No Symptoms
Abdomen/GI: Reports No Symptoms
: Reports No Symptoms
Musculoskeletal: Reports Other (left knee pain)
Skin: Reports No Symptoms
Neurological: Reports No Symptoms
Endocrine: Reports No Symptoms
Hematologic/Lymphatic: Reports No Symptoms
Psych: Reports No Symptoms
Physical Exam
Vital Signs
Vital Signs
Temp Pulse Resp BP Pulse Ox
98 F 71 18 145/89 96
01/25/25 22:47 01/25/25 22:47 01/25/25 22:47 01/25/25 22:47 01/25/25 22:47
Physical Exam
General: Well Developed, Well Nourished and No Apparent Distress
HEENT: NormoCephalic, Moist mucous membranes and Atraumatic
Respiratory: Clear
Cardiac: S1/S2 and Regular Rhythm; No Murmur or Rub
GI: Soft, Non Tender, Non Distended and Normal Bowel Sounds; No Organomegaly
Rectal: Deferred by Provider
Musculoskeletal: No Clubbing, No Cyanosis and Other (b/l LE edema, left greater than right)
Skin: Rash
Neuro: AO x 3 and Nonfocal/grossly intact
Psych: Calm
Laboratory Results
-
01/25/25 20:08
01/25/25 20:08
Laboratory Results
Total Bilirubin 0.6 mg/dl (0.2-1.3) 01/25/25 20:08
AST 19 U/L (17-59) 01/25/25 20:08
ALT 13 U/L (0-50) 01/25/25 20:08
Alkaline Phosphatase 148 U/L (38-126) H 01/25/25 20:08
Data Reviewed
-
Diagnostic Radiology: Report Reviewed by me
Lab Data: Labs Reviewed by me
Impression/Plan
-
#severe left knee pain likely secondary to facture of femoral condyle
#recent TKA
-x ray with the impression of Stable position of the left total knee arthroplasty. New mild osseous irregularity of the lateral femoral condyle, equivocal for a small fracture. Small knee joint effusion. Vascular calcifications
-immobilizer in place
-CT of LE
-cephalexin continued
-orthopedics consulted
-oxycodone continued
-PT consulted after ortho evaluation
#Parkinson's disease: Sinemet
#chronic back pain
-oxy, lisandro, continued
#Coronary artery disease with cardiac stent
- Plavix held
#factor V Leiden
#DVT with ivc filter
-hold eliquis
-initiated heparin
#GERD
-PPI continued
#essential HTN
-isosorbide continued
-Lasix continued
#hxt of RA
-on cimzia as outpatient
#hxt of staph infection with L spine surgery
-cephalexin continued
#CODE status
-full code
[2025-01-26] VITALS (7 sets, daily range): BP systolic 112–158; BP diastolic 59–80; BMI 30.4
[2025-01-26 00:59] LABS: Hematocrit 36.8 % (39.0-52.0); Hemoglobin 11.7 g/dL (13.0-18.0); Mean Corp Hgb Conc. 31.8 g/dL (33.0-37.0); Mean Corpuscular Volume 96.1 fL (80.0-94.0); Platelet Count 338 10^3/uL (130-400); Red Cell Dist. Width 14.9 % (11.5-14.5)
[2025-01-26] MEDS: HEPARIN 25000 UNITS/250 ML IV (01:10)
[2025-01-26 01:25] LABS: APTT 29.8 Sec (23.4-35.0)
[2025-01-26] MEDS: SINEMET 25-100 1.5 TABLET PO ×3 (03:21→19:38)
[2025-01-26] MEDS: COLACE 100 MG PO ×3 (03:22→23:22)
[2025-01-26] MEDS: ROXICODONE 5 MG PO ×2 (03:22→19:42)
[2025-01-26] MEDS: OXYCONTIN (CONTROLLED RELEASE) 10 MG PO ×3 (03:22→19:33)
--- NOTE | 2025-01-26 08:15 | CON.ORTHO ---
Consultation
-
Date/Time Consultation Requested: Feb 02
Date/Time Consultation Performed: Feb 02
Requesting Provider: RAJEEV Smith
Performing Provider: Rachell Haywood
Reason for Consultation: Left knee pain, s/p Left TKA. Now with fracture
Consultation - Orthopedics
History
HPI:
74 y/o male with history DVT, CAD, cardiac stent, HTN of factor V Leiden, on Eliquis and Plavix, LEFTTKA by Dr. Cole on January 03, discharged from rehab to home 8 days ago. He states he has chronic left leg swelling including his foot due
to 'bad valves.' He states his lower leg is no more swollen than usual. Patient had follow-up appoint 1 week ago and was able to ambulate completely independently, had a good visit, ambulated back out to his car and as he was getting in the
passenger side his left foot caught as he put it into the car and twisted his left knee and felt sudden severe pain in the knee. No fall reported Over this past week the knee has become more swollen and painful. Reached out to our office for pain
control and was recommended to his pain specialist. Spoke again to his yesterday and she inquired about mobile xray coming to the house because 'he could not walk/bear weight.' I instructed them that the best course would be the ER, therefore
he presented last PM and xrays showed a cortical irregularity of the LFC, concerning for acute fracture (which was not present immediately post-op). This does correlate with his pain. CT was requested to confirm whether or not the concern on xray
was acute, which may also be associated with a loose femoral component of his TKA. Of note, patient is under pain management for back pain takes OxyContin 10 mg and hydrocodone 5 mg as needed for pain, his last dose was 8 AM this morning.
Past Medical History:
Factor V Leiden
DVT
HTN
Hypercholesterolemia
Parkinson's
GERD
Chronic back pain followed by pain management
Past Surgical History:
Cardiac (Stent)
Cholecystectomy,
Left TKA (Jan 03 [place])
Back surgery
[place] filter
Social History:
Tobacco: Non-smoker
Personal:
Living: with family
Family History:
Non-contributory
ROS:
12 point negative except those mentioned in the HPI
Allergies / Home Medications
Allergy/AdvReac Type Severity Reaction Status Date / Time
acetaminophen (From Tylenol) Allergy elevated Verified 12/31/24 08:35
liver
enzymes
morphine (From MS Contin) Allergy Brain Verified 12/31/24 08:35
disconnect-
couldn't
walk or
move body
[id number]-[id number] Reductase Allergy myalgias, Verified 12/31/24 08:35
Inhibitor felt out
of it
�Medication �Instructions �Recorded
carbidopa 25 mg-levodopa 100 mg 1.5 tab PO TID@0400,1200,199912/06/24
tablet PARKINSONS
certolizumab pegol 400 mg/2 mL 400 mg SC Q28D Antirheumatic 12/06/24
(200 mg/mL x2) subcutaneous
syringe kit (Cimzia)
Held on 01/16/25.
Instructions: Discussed with
surgery or rheumatology when
can resume
cholecalciferol (vitamin D3) 50 100 mcg PO BID@1200,0000 Supplement 12/06/24
mcg (2,000 unit) capsule (Vitamin
D3)
docusate sodium 100 mg capsule 100 mg PO BID@1200,0000 STOOL 12/06/24
(Colace) SOFTENER
oxycodone 10 mg tablet,crush 10 mg PO TID@0400,1199,2000 Pain 12/06/24
resistant,extended release 12 hr
(OxyContin)
Saccharomyces boulardii 250 mg 250 mg PO BID #1 cap 12/31/24
capsule (Florastor)
sennosides 8.6 mg tablet (Senokot) 17.2 mg (2 x 8.6 mg) PO BID 12/31/24
laxative #2 tabs
oxycodone 5 mg tablet 5 mg PO Q6H PRN moderate-severe 01/02/25
pain #1 tab
apixaban 5 mg tablet (Eliquis) 5 mg PO BID@1200,0000 Heart 01/16/25
disease/condition 30 days #60 tabs
baclofen 5 mg tablet 5 mg PO TID PRN Muscle tightness 01/16/25
30 days #90 tabs
cephalexin 500 mg capsule 500 mg PO TID Postop prophylaxis 01/16/25
30 days #90 caps
clopidogrel 75 mg tablet (Plavix) 75 mg PO NOON Heart 01/16/25
disease/condition #0 tabs
gabapentin 300 mg capsule 300 mg PO HS sleep/pain 30 days 01/18/25
#30 caps
famotidine 20 mg tablet 20 mg PO HS 01/25/25
furosemide 40 mg tablet 40 mg PO DAILY 01/25/25
isosorbide mononitrate 30 mg 30 mg PO DAILY 01/25/25
tablet,extended release 24 hr
magnesium 250 mg tablet 250 mg PO DAILY 01/25/25
polyethylene glycol 3350 17 gram 17 g PO DAILY 01/25/25
oral powder packet (Miralax)
Vital Signs / Lab Results
Temp Pulse Resp BP Pulse Ox
97.9 F 69 18 158/61 97
01/26/25 07:49 01/26/25 07:49 01/26/25 07:49 01/26/25 07:49 01/26/25 07:49
01/26/25 00:50
01/25/25 20:08
Assessment / Plan
PE: At bedrest. Afeb. Hgb 11.7. In KI. Focused exam of left knee reveals a well healed incision without any signs of infection. Expected edema about the knee. To palpation there is generalized pain to palpation, including over the LFC. ROM 0-70 with
pain (9 days ago at post-op 0-90). No overt instability. Calf soft, nontender. DNVI LLE
Diagnostics:
Xray of the LEFT knee independently read and interpreted. In my opinion there is a cortical irregularity of the LFC. compared to immediate post-op films (Jan 03) this abnormality was not present. Xrays also appear to show his knee in a slight
bit of increased valgus
CT LEFT knee, with beam artifact, but I believe there to be an acute fracture of the LFC. Ther prosthesis itself doesn't appear overtly loose, but there is definitely a real concern for this based on xray comparison
Impression: Fracture LEFT distal femur (lateral condyle) s/p LEFT TKA
Plan: This is a difficult situation here. Patient is just shy of 4 weeks from LEFT TKA with an acute twisting episode that appears to have resulted in a fracture of his LFC. Concern here for femoral component loosening. He is on chronic opioids for
his low back pain, managed by pain management. He also has Parkinson's, which together likely resulted in this unfortunate episode. Also with some significant medical comorbidities. With all this said, there is no acute plan to reconstruct his knee.
Dr. Cole aware. In his experience reconstructing acutely tends to be quite difficult due to bone quality. It would be best, at this juncture, to allow this acute injury to heal. Once consolidated, depending how the femoral component settles, we
will discuss our feeling on a revision surgery. It would be best however, in our opinion, to allow for healing here before considering further intervention. For now I will suggest TTWB in his knee immobilizer on a walker. PT/OT evaluation will be
requested. Would continue his blood thinners for now and promote OOB to prevent recurrent DVT, filter sludge, etc. Pain control, but carefully managed. When felt he is optimized medically would suggest D/c to rehab or home, depending on his social
situation, with close outpatient Orthopaedic follow-up (1 week). Discussed with the patient and his and will touch base with attending hospitalist, Dr. Bray. Will follow
Patient was also seen bedside by Dr. Haywood and should be billed accordingly
--- NOTE | 2025-01-26 08:22 | W.PN.HOSP.TC ---
Addendum entered and electronically signed by Sb Bray MD 01/26/25 08:26:
#Mild anemi
follow up with PCP as outpatient
#Elevated Alk.phos
no abd pain
2/2 recent TKA and Fx
no need to follow
Original Note:
Today's Communication/Plan
-
se PN
Assessment / Plan
Assessment / Plan
74yo M with PMHX of Parkinson, Factor V leuden, DVY on ELiquis, ASCVD, L TKA 12/31/24 with appropriate recovery came after worsening pain and ambulation since he traumatised his leg while getting into the car after doctors appt 1 week bef[address] current
admission. [address] concerningfor lateral condyle FX
A/P:
#L TKA s/p trauma, concern for L Lateral condyle Fx
Pain mgmt
PT/OT
Ortho consult
Cefpalexin planned by ortho for 30 days s/p TKA
#DVT
#Factor V leuden
on heparin bridging. Switch back to ELiquis after final ortho plan
#ASCVD
#Parkinson disease
Cont home meds
#Irregular HR
EKG
telemetry
DVT ppx hep drip
FUll code
I have spent at least 51min reviewing chart, test results, communication with consultants and providing direct patient care
Anticipated Discharge: 24 - 48 hours
Subjective/Interval History
-
Date of Service: January 26, 2025
Objective Data
-
Labs:
Laboratory Results
01/25/25 01/26/25 01/26/25
20:08 00:50 07:16
WBC 7.0
Hgb 11.7 L
Hct 36.8 L
Plt Count 338
APTT 29.8 Pending
Sodium 142
Potassium 4.2
Chloride 108 H
Carbon Dioxide 30
BUN 40 H
Creatinine 0.8
Glucose 104 H
Calcium 9.8
Total Bilirubin 0.6
AST 19
ALT 13
Alkaline Phosphatase 148 H
Vital Signs:
Vital Signs
Temp Pulse Resp BP Pulse Ox
97.9 F 69 18 158/61 97
01/26/25 07:49 01/26/25 07:49 01/26/25 07:49 01/26/25 07:49 01/26/25 07:49
Review of Systems
-
History Source: Patient
All other systems: Reviewed and negative
Musculoskeletal: Reports Other (L lateral knee pain)
Physical Exam
-
General: No Apparent Distress
HEENT: Normocephalic
Respiratory: Clear to Auscultation
Cardiac: Irregular Rhythm
Musculoskeletal: Other (well healing postOP scar on L knee, no redness or swelling of the joint)
Neuro: Awake, Alert, Oriented and AO x 3
Psych: Calm
[2025-01-26] MEDS: MIRALAX 17 GRAMS PO (09:01)
[2025-01-26] MEDS: KEFLEX 500 MG PO ×3 (09:01→21:46)
[2025-01-26] MEDS: IMDUR (EXTENDED RELEASE) 30 MG PO (09:02)
[2025-01-26] MEDS: MAGNESIUM OXIDE 400 MG PO (09:02)
[2025-01-26] MEDS: SENOKOT 17.2 MG PO ×2 (09:02→19:33)
[2025-01-26] MEDS: FLORASTOR 250 MG PO ×2 (09:02→19:33)
[2025-01-26] MEDS: LASIX 40 MG PO (09:02)
[2025-01-26 10:04] LABS: APTT 93.5 Sec (23.4-35.0)
[2025-01-26] MEDS: ELIQUIS 5 MG PO ×2 (11:47→19:34)
[2025-01-26] MEDS: PLAVIX 75 MG PO (11:50)
--- NOTE | 2025-01-26 15:37 | CM ---
Alert awake oriented patient who lives with his Tierra in a 2 story home with 2 step to enter and 13 steps to bed and bathroom. He is assisted in all activities of daily living.He will need PT OT for discharge plan. He uses walker .
[facility]
PCP DR Santa
PLAN Will need PT OT for dc planning
[2025-01-26] MEDS: PEPCID 20 MG PO (21:46)
[2025-01-26] MEDS: NEURONTIN 300 MG PO (21:46)
[2025-01-27] VITALS (9 sets, daily range): BP systolic 111–159; BP diastolic 57–81; PULSE 80; O2SAT 96; BMI 31.2
[2025-01-27] MEDS: SINEMET 25-100 1.5 TABLET PO ×3 (04:40→21:16)
[2025-01-27] MEDS: OXYCONTIN (CONTROLLED RELEASE) 10 MG PO ×3 (04:40→21:16)
[2025-01-27] MEDS: IMDUR (EXTENDED RELEASE) 30 MG PO (09:24)
[2025-01-27] MEDS: MAGNESIUM OXIDE 400 MG PO (09:24)
[2025-01-27] MEDS: KEFLEX 500 MG PO ×3 (09:24→21:08)
[2025-01-27] MEDS: MIRALAX 17 GRAMS PO (09:24)
[2025-01-27] MEDS: SENOKOT 17.2 MG PO ×2 (09:24→21:07)
[2025-01-27] MEDS: LASIX 40 MG PO (09:25)
[2025-01-27] MEDS: ELIQUIS 5 MG PO ×2 (09:25→21:08)
[2025-01-27] MEDS: ROXICODONE 5 MG PO (09:31)
[2025-01-27] MEDS: FLORASTOR 250 MG PO ×2 (10:16→21:08)
--- NOTE | 2025-01-27 11:09 | W.PN.UPDATE ---
Update Note
Progress Note Update
Discussed with the patient bedside, and also with , Tierra, via phone. As per my consult note, a difficult situation. No plan for acute surgical intervention for knee revision given fracture/bone quality. Plan to allow for healing and to follow
closely with serial radiographs. Based on how the femoral component settles, as there is concern for loosening, we will discuss further. For now TTWB LLE on walker/assistance. KI to remain place at all times except showering. If awake may loosen KI
to ice. Pain control monitored closely, as he is on chronic opioids (managed by pain management). Unfortunately I believe the chronic opioid use coupled with his Parkinson's contributed to this. Would promote OOB as much as he feasibly can to avoid
future thrombus, filter sludge, etc. Discussed with Milton Lisa, RICHAR/CM. Strongly advocating for return to rehab (?Erik). Will place, at her request, a PM&R (Dr. Torres's service alerted) consult. Continue anticoagulation. Discussed with
Asa. Will follow. Outpatient Ortho follow-up 1 week. If still admitted by Tuesday would repeat xras for prior comparison. For now, KI in place. Left knee with well healed incision. Calf soft, nontender. DNVI LLE. Will follow.
--- NOTE | 2025-01-27 11:28 | W.PN.HOSP.TC ---
Today's Communication/Plan
-
pending physiatry consult for acute rehab acceptance
Assessment / Plan
Assessment / Plan
74yo M with PMHX of Parkinson, Factor V leuden, DVY on ELiquis, ASCVD, L TKA 12/31/24 with appropriate recovery came after worsening pain and ambulation since he traumatized his leg while getting into the car after doctors appt 1 week befoe current
admission. [address] concerning Fracture LEFT distal femur (lateral condyle) s/p LEFT TKA. As per Ortho - conservative mgmt, pending acute rehab, physiatry consult pending
A/P:
#L TKA s/p trauma, concern for L Lateral condyle Fx
Pain mgmt
PT/OT
Ortho consult: conservative mgmt, follow up in 1 week. acute rehab
Cefpalexin planned by ortho for 30 days s/p TKA till 02/15/25
#DVT
#Factor V leuden
ELiquis
#ASCVD
#Parkinson disease
Cont home meds
#Irregular HR
EKG
telemetry
DVT ppx Eliquis
FUll code
I have spent at least 36min reviewing chart, test results, communication with consultants and providing direct patient care
Anticipated Discharge: Within 24 hours
Subjective/Interval History
-
Date of Service: January 27, 2025
Objective Data
-
Vital Signs:
Vital Signs
Temp Pulse Resp BP Pulse Ox
98.0 F 57 16 147/81 96
01/27/25 07:30 01/27/25 07:30 01/27/25 07:30 01/27/25 09:25 01/27/25 07:30
I&O
01/26/25 01/27/25 01/28/25
06:59 06:59 06:59
Intake Total 840 / 840 480 / 480
Output Total 700 / 700 450 / 450
Balance 140 / 140 30 / 30
[2025-01-27] MEDS: PLAVIX 75 MG PO (13:41)
[2025-01-27] MEDS: COLACE 100 MG PO ×2 (13:42→23:00)
[2025-01-27] MEDS: PEPCID 20 MG PO (21:07)
[2025-01-27] MEDS: NEURONTIN 300 MG PO (21:09)
[2025-01-28] VITALS (8 sets, daily range): BP systolic 108–164; BP diastolic 67–79; PULSE 66
[2025-01-28] MEDS: OXYCONTIN (CONTROLLED RELEASE) 10 MG PO ×3 (03:40→19:46)
[2025-01-28] MEDS: SINEMET 25-100 1.5 TABLET PO ×3 (03:41→19:47)
[2025-01-28] MEDS: KEFLEX 500 MG PO ×3 (08:06→21:07)
[2025-01-28] MEDS: ELIQUIS 5 MG PO ×2 (08:07→19:46)
[2025-01-28] MEDS: MIRALAX 17 GRAMS PO (08:07)
[2025-01-28] MEDS: MAGNESIUM OXIDE 400 MG PO (08:07)
[2025-01-28] MEDS: LASIX 40 MG PO (08:07)
[2025-01-28] MEDS: IMDUR (EXTENDED RELEASE) 30 MG PO (08:07)
[2025-01-28] MEDS: SENOKOT 17.2 MG PO ×2 (08:07→19:47)
[2025-01-28] MEDS: FLORASTOR 250 MG PO ×2 (08:08→19:46)
--- NOTE | 2025-01-28 09:27 | W.PN.HOSP.TC ---
Today's Communication/Plan
-
Discharge to rehab when bed available
Assessment / Plan
Assessment / Plan
74yo M with PMHX of Parkinson, Factor V leuden, DVY on ELiquis, ASCVD, L TKA 12/31/24 with appropriate recovery came after worsening pain and ambulation since he traumatized his leg while getting into the car after doctors appt 1 week befoe current
admission. CT concerning Fracture LEFT distal femur (lateral condyle) s/p LEFT TKA. As per Ortho - conservative mgmt, pending acute rehab, physiatry consult pending
A/P:
#L TKA s/p trauma, concern for L Lateral condyle Fx
Ortho consult: conservative mgmt, follow up in 1 week.
Pain mgmt, PT/OT - rec SNF, family req acute rehab, physiatry consulted and informed
Cephalexin planned by ortho for 30 days s/p TKA till 02/15/25
Repeat XRs on Tue if still in house
#Constipation
Continue laxatives, add magnesium citrate x 1
#DVT
#Factor V Leiden
Continue Eliquis
#ASCVD
Continue statin, Plavix, Imdur
#Parkinson disease
Continue Sinemet
#Irregular HR
EKG
telemetry
DVT ppx Eliquis
Full code
Total time spent to see the patient on the floor, examine the patient, review data and lab results, discuss treatment plan with patient, nursing staff around 35 minutes.
Physical Exam
General: No acute distress
HEENT: Normocephalic, Atraumatic, EOMI, MMM
Respiratory: Clear to Auscultation bilaterally
Cardiac: Normal S1/S2, Regular Rate and Rhythm
GI: Soft, Nontender, Nondistended, Normal Bowel Sounds
Extremities: No Clubbing, Cyanosis, or Edema
Neuro: Nonfocal/Grossly Intact
Psych: Calm, Cooperative
Anticipated Discharge: Within 24 hours
Subjective/Interval History
-
Date of Service: January 28, 2025
Objective Data
-
Vital Signs:
Vital Signs
Temp Pulse Resp BP Pulse Ox
97.3 F 57 16 149/75 96
01/28/25 07:35 01/28/25 07:35 01/28/25 07:35 01/28/25 07:35 01/28/25 07:35
I&O
01/27/25 01/28/25 01/29/25
06:59 06:59 06:59
Intake Total 840 / 840 2160 / 2160
Output Total 700 / 700 3125 / 3125
Balance 140 / 140 -965 / -965
[2025-01-28] MEDS: COLACE 100 MG PO ×2 (12:00→23:04)
[2025-01-28] MEDS: CITROMA 300 ML PO (12:00)
[2025-01-28] MEDS: PLAVIX 75 MG PO (12:00)
--- NOTE | 2025-01-28 13:00 | W.PN.UPDATE ---
Update Note
Progress Note Update
Please see my progress note from yesterday. Still DNVI LLE. Will await Dr. Torres's consultation and hopeful recommendation for acute rehab. Continue with TTWB on walker. Continue anticoagulation. No plan for acute surgical intervention. if
still admitted by Tuesday of this week would repeat x-rays on the left knee
--- NOTE | 2025-01-28 15:06 | CM ---
CM following for discharge planning. Pt referred to [facility] for consideration. Awaiting physiatry consult for [facility] admission evaluation.
--- NOTE | 2025-01-28 16:21 | PN.CDI ---
CDI
- -
CDI:
Physician Documentation Request
Admit Date: 01/25/25 23:45
Dear Doctor,
Please review the following and provide your response in the progress notes.
Clinical Indicators:
Pt admitted for L TKA s/p trauma, concern for L Lateral condyle Fx.
Home medications include: oxycodone 10 mg tablet,crush resistant,extended release 12 hr (OxyContin) 10 mg PO TID@0400,1200,2000 Pain 12/06/24
oxycodone 5 mg tablet 5 mg PO Q6H PRN moderate-severe pain #1 tab 01/02/25
01/27 Orthopedics: ' Pain control monitored closely, as he is on chronic opioids (managed by pain management).'
Based on the above, could you clarify in the progress notes, the appropriate diagnosis, if significant, that supports the above abnormalities and additional evaluation, monitoring and/or treatment rendered:
Opioid dependence
Chronic opioid use only
Other
Use of terms such as suspected, likely, concern for, or probable (associated with a specific diagnosis that is being evaluated, monitored, or treated as if it exists) are acceptable and can be coded in the inpatient setting, when documented at the
time of discharge.
Thank you,
Tracey Caban RN, BSN
CDI Specialist
[facility]
Please use your independent medical judgment in providing your response.
[2025-01-28] MEDS: NEURONTIN 300 MG PO (21:07)
[2025-01-28] MEDS: PEPCID 20 MG PO (21:07)
[2025-01-29] VITALS (8 sets, daily range): BP systolic 114–157; BP diastolic 59–81; PULSE 80; O2SAT 96
[2025-01-29] MEDS: SINEMET 25-100 1.5 TABLET PO ×3 (04:03→20:18)
[2025-01-29] MEDS: OXYCONTIN (CONTROLLED RELEASE) 10 MG PO ×3 (04:03→20:17)
--- NOTE | 2025-01-29 07:54 | W.PN.UPDATE ---
Update Note
Progress Note Update
74 year old male 4 weeks s/p left TKA with left femoral condyle fracture. Still with pain, localized over the lateral aspect of the knee. Reports difficulty getting around with WB restrictions. DNVI LLE. 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 May remove to apply ice. Continue anticoagulation. No plan for acute surgical intervention. Continue with PT/OT as able. if still admitted by Tuesday of this week would repeat x-rays on the left knee. Will
continue to follow while inpatient.
[2025-01-29] MEDS: KEFLEX 500 MG PO ×3 (08:48→21:44)
[2025-01-29] MEDS: MAGNESIUM OXIDE 400 MG PO (08:48)
[2025-01-29] MEDS: FLORASTOR 250 MG PO ×2 (08:48→20:18)
[2025-01-29] MEDS: LASIX 40 MG PO (08:48)
[2025-01-29] MEDS: ELIQUIS 5 MG PO ×2 (08:48→20:11)
[2025-01-29] MEDS: SENOKOT 17.2 MG PO ×2 (08:48→20:17)
[2025-01-29] MEDS: IMDUR (EXTENDED RELEASE) 30 MG PO (08:48)
[2025-01-29] MEDS: MIRALAX 17 GRAMS PO (08:49)
--- NOTE | 2025-01-29 09:21 | W.PN.HOSP.TC ---
Today's Communication/Plan
-
Discharge to rehab when bed available
Assessment / Plan
Assessment / Plan
74yo M with PMHX of Parkinson, Factor V leuden, DVY on ELiquis, ASCVD, L TKA 12/31/24 with appropriate recovery came after worsening pain and ambulation since he traumatized his leg while getting into the car after doctors appt 1 week befoe current
admission. CT concerning Fracture LEFT distal femur (lateral condyle) s/p LEFT TKA. As per Ortho - conservative mgmt, pending acute rehab, physiatry consult pending
A/P:
#L TKA s/p trauma, concern for L Lateral condyle Fx
Ortho consult: conservative mgmt, follow up in 1 week.
Pain mgmt, PT/OT - rec SNF, ortho rec acute rehab, physiatry saw patient 01/28
Cephalexin planned by ortho for 30 days s/p TKA till 02/15/25
Repeat XRs on Tue if still in house
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
#Chronic pain with chronic daily opioid use, unknown if there is dependency
Continue pain meds
# Opioid-induced constipation
Patient requires magnesium citrate to have bowel movements despite laxatives
Continue aggressive bowel regimen, and magnesium citrate as needed
#DVT
#Factor V Leiden
Continue Eliquis
#ASCVD
Continue statin, Plavix, Imdur
#Parkinson disease
Continue Sinemet
#Irregular HR
EKG shows sinus rhythm with PACs
DVT ppx Eliquis
Full code
Total time spent to see the patient on the floor, examine the patient, review data and lab results, discuss treatment plan with patient, nursing staff around 37 minutes.
Physical Exam
General: No acute distress
HEENT: Normocephalic, Atraumatic, EOMI, MMM
Respiratory: Clear to Auscultation bilaterally
Cardiac: Normal S1/S2, Regular Rate and Rhythm
GI: Soft, Nontender, Nondistended, Normal Bowel Sounds
Extremities: No Clubbing, Cyanosis, or Edema
Neuro: Nonfocal/Grossly Intact
Psych: Calm, Cooperative
Anticipated Discharge: Within 24 hours
Subjective/Interval History
-
Date of Service: January 29, 2025
Patient had a bowel movement yesterday after receiving magnesium citrate. He reports his knee pain is tolerable if he does not move. Denies chest pain, denies shortness of breath. No fever, no vomiting.
Objective Data
-
Vital Signs:
Vital Signs
Temp Pulse Resp BP Pulse Ox
97.8 F 57 18 132/65 97
01/29/25 07:00 01/29/25 07:00 01/29/25 07:00 01/29/25 07:00 01/29/25 07:00
I&O
01/28/25 01/29/25 01/30/25
06:59 06:59 06:59
Intake Total 2160 / 2160 1280 / 1280
Output Total 3125 / 3125 2650 / 2650
Balance -965 / -965 -1370 / -1370
[2025-01-29] MEDS: PLAVIX 75 MG PO (12:02)
[2025-01-29] MEDS: COLACE PO ×2 (12:03→23:03)
--- NOTE | 2025-01-29 15:00 | CON.MD ---
Documented by User: Estela Flaherty PA-C 01/29/25 15:16
Consultation - Medical
-
Referring Provider:�Chaz Ramirez Do
Chief Complaint:�Ambulatory dysfunction s/p trauma to left knee post CLEMENTINE
�
History of Present Illness:�74 year old Male with PMH of (Parkinson's, Factor V leiden, DVT on ELiquis, CAD with stent, HTN, Hypercholesterolemia, GERD, Chronic back pain on opioids, chronic leg left/foot swelling, s/p Left TKA on 12/31/24 by
Gabriel Cole then discharged from [facility] to home who came to the hospital on 01/25/2025 after worsening pain with ambulation since traumatizing his leg while getting into his car [address] concerning Fracture LEFT distal femur
(lateral condyle)
Seen by surgeon- No plan for acute surgical intervention for knee revision given fracture/bone quality. Plan to allow for healing and to follow closely with serial radiographs. Based on how the femoral component settles, as there is concern for
loosening. For now TTWB LLE on walker/assistance. KI to remain place at all times except showering. If awake may loosen KI to ice. Pain control monitored closely, as he is on chronic opioids. Continue Plavix and Eliquis and Cephalexin post op for 30
days till 02/15/25. if still admitted by Tuesday of this week would repeat x-rays on the left knee.
Past Medical History:�Parkinson's, Factor V leiden, ASCVD, HTN, Hypercholesterolemia, GERD, Chronic back pain on opioids followed by pain management, Osteoarthritis, degenerative disc disease, Parkinson's disease, recurrent DVT on Eliquis, factor V
Leiden, CAD, MARCO ANTONIO, GERD, BPH, pilonidal cyst, h/o Barett's esophagus
Procedure History:�Cardiac stent, pilonidal cyst surgery, cholecystectomy, lumbar decompression with washout secondary to staph infection. Let TKA, Galo filter,Cholecystectomy,
Family History:�CAD ( Both Parents ), Cancer (Brother- lung cancer with brain mets), Hypertension (Both parents) and Other (Son and daughter- MS)
�
Social History:�
Functional Level Premorbidly:�Independent with all activities�
Functional Level Currently:�Eating�independent, grooming�set up, lower extremity self-care�dependent, bed mobility-mod��max assist, transfers�max assist,
�
�
Tobacco:�Former smoker
Alcohol:�Denies�
Drug use:�Denies�
Lives With:�Spouse
24-hour assistance available:�Yes
Number of floors:�2
# steps to enter:�1+1
# steps to second floor:�Full flight
Potential First Floor Set Up:�Yes, has private room
Driving:�Yes up to 1 mile
Occupation:�Retired
�
�
Allergies:�
Allergy/AdvReac Type Severity Reaction Status Date / Time
acetaminophen (From Tylenol) Allergy elevated Verified 12/31/24 08:35
liver
enzymes
morphine (From MS Contin) Allergy Brain Verified 12/31/24 08:35
disconnect-
couldn't
walk or
move body
[id number] Reductase Allergy myalgias, Verified 12/31/24 08:35
Inhibitor felt out
of it
�
Review of Systems:�
Constitutional: (x) Normal _
Eye: (x) Normal _
Ear/Nose/Throat: (x) Normal _
Respiratory: (x) Normal _
Cardiovascular: (x) Normal _
Gastrointestinal: (x) Normal _
Genitourinary: (x) Normal _
Musculoskeletal: (x) abNormal _left knee pain, s/p tka, chronic LLE swelling, DVT, right knee pain, elbows
Integumentary: (x) Normal _
Neurologic: (x) abNormal _parkinson's
Psychiatric: (x) Normal _
Endocrine: (x) Normal _
Hematologic/Lymphatic: (x) Normal _
Allergic/Immunologic: (x) Normal _
�
Medications:�
Active Current Visit Medication List
Category Date Time Status
Apixaban Eliquis Med 01/26/25 10:30 Active
5 mg PO BID
Baclofen [Lioresal] Med 01/26/25 02:22 Active
5 mg PO TID PRN Muscle tightness
Carbidopa/Levodopa [Sinemet 25-100] Med 01/26/25 04:00 Active
1.5 tablet PO TID@0400,1200,2000
Cephalexin Monohydrate [Keflex] Med 01/26/25 08:00 Active
500 mg PO TID
Clopidogrel Bisulfate [Plavix] Med 01/26/25 12:00 Active
75 mg PO NOON
Docusate Sodium [Colace] Med 01/26/25 03:00 Active
100 mg PO BID@1200,0000
Famotidine [Pepcid] Med 01/26/25 22:00 Active
20 mg PO HS
Flush (0.9% Sodium Chloride) [Flush (Nss)] Med 01/26/25 03:00 Active
See Dose Instructions IV PER PROTOCOL
Furosemide [Lasix] Med 01/26/25 08:00 Active
40 mg PO DAILY
Gabapentin [Neurontin] Med 01/26/25 22:00 Active
300 mg PO HS
ISOSORBIDE MONOnitrate ER [Imdur (Extended Release)] Med 01/26/25 08:00 Active
30 mg PO DAILY
Magnesium Hydroxide [Milk of Magnesia] Med 01/26/25 02:22 Active
30 ml PO DAILYPRN PRN
Magnesium Oxide Med 01/26/25 08:00 Active
400 mg PO DAILY
Oxycodone Controlled Release [Oxycontin (Controlled Med 01/26/25 04:00 Active
Release)]
10 mg PO TID@0400,1200,2000
Oxycodone [Roxicodone] Med 01/26/25 02:22 Active
5 mg PO Q6H PRN moderate-severe pain
Polyethylene Glycol Powder [Miralax] Med 01/26/25 08:00 Active
17 grams PO DAILY
Saccharomyces Boulardii [Florastor] Med 01/26/25 08:00 Active
250 mg PO BID
Sennosides [Senokot] Med 01/26/25 08:00 Active
17.2 mg PO BID
Tamsulosin [Flomax] Med 01/26/25 02:22 Active
0.4 mg PO DAILYPRN PRN
�
Vitals:�
Temp Pulse Resp BP Pulse Ox
98.3 F 62 17 157/81 95
01/29/25 03:04 01/29/25 03:04 01/29/25 03:04 01/29/25 03:04 01/29/25 03:04
Height 5 ft 7 in
Actual Weight 90.174 kg
Body Mass Index (BMI) 31.2
�
Physical Exam:�
General Appearance/Observation: Well-developed, well-nourished individual in no apparent distress.�
Pain/Comfort Assessment: left knee, right knee
Mood/Affect: Appropriate�
�
Integumentary/Operative Site:�
�� Pressure Ulcer Evaluation: absent over heels.�
��
�� Other Type of Wound: absent�
�
�
Eyes: Conjunctiva/Lids: normal���� Pupils: pupils equal round
Ears/Nose/Throat: oral mucosa moist,� throat clear.������������ Lips/Teeth/Gums: normal�
Neck: No muscle spasm or tenderness�
Cardiovascular: Heart: reg, irregular, no murmur�
Pulses: dorsalis pedis 2+ bilaterally�
Respiratory: Respiratory Effort/Chest Expansion: normal������� Auscultation: Clear to auscultation bilaterally�
Gastrointestinal: abdomen not tender, no distension, normal abdominal bowel sounds
Genitourinary: Frias�with yellow urine
Extremities:�Edema: LLE in immobilizer�Cyanosis: None�Trophic�changes: None
�
Neurology Exam:
Orientation: Alert, Oriented to self, Time, Place�
Memory: Intact for immediate medical concerns
Comprehension: Intact
Two step command: Intact
Naming: Intact
Cranial Nerves:
�� CNII:�Pupillary light reflex: Intact����Visual Field: Intact
�� CN III, IV, : Extraocular muscles: Intact�
��
��CN VII:�Facial movement: Symmetric mildly decreased movement symmetrically
�� CN VIII:�Hearing: Normal
�� CN IX/X:�Speech & swallow: Normal,�Position of Uvula: Midline
�� CN XI:�Shoulder shrug: Symmetric
�� CN XII:�Tongue protrusion: Midline
Sensory:
�� Light touch: Intact in bilateral upper and right lower extremities, LLE not tested
��
�
Reflexes:
�� Biceps: 2+ bilaterally
�� Brachioradialis: 2+ bilaterally
�� Triceps: 2+ bilaterally
�� Patellar: deferred bilaterally
�� Achilles: absent bilaterally
�� Babinski: Down going bilaterally
�� Clonus: None
�� Nixon: Negative bilaterally�
Cerebellar: Dysmetria/Ataxia: None�
Musculoskeletal: Motor: (Manual muscle scale 0-5)��
Muscle SA EF WE EE FF FA HF KE DF EHL PF
Right� 5 5 5 5 5 4 4 5 5 5 5
Left 5 5 5 5 5 4 NT NT 5 5 5
�* LLE in Immobilizer
Tone: Normal in all extremities, ��
Range of Motion: Generalized arthritic changes limiting motion
�
�
Lab Results:
Labs
WBC 7.0 10^3/uL (4.8-10.8) 01/26/25 00:50
RBC 3.83 10^6/uL (4.70-6.10) L 01/26/25 00:50
Hgb 11.7 g/dL (13.0-18.0) L 01/26/25 00:50
Hct 36.8 % (39.0-52.0) L 01/26/25 00:50
MCV 96.1 fL (80.0-94.0) H 01/26/25 00:50
MCH 30.5 pg (27.0-31.0) 01/26/25 00:50
MCHC 31.8 g/dL (33.0-37.0) L 01/26/25 00:50
RDW 14.9 % (11.5-14.5) H 01/26/25 00:50
Plt Count 338 10^3/uL (130-400) 01/26/25 00:50
MPV 8.5 fL (7.4-10.4) 01/26/25 00:50
Abs Immat Gran (auto) 0.0 10^3/uL (0-0.05) 01/25/25 20:08
Absolute Neuts (auto) 4.4 10^3/uL (1.4-6.5) 01/25/25 20:08
Absolute Lymphs (auto) 1.9 10^3/uL (1.2-3.4) 01/25/25 20:08
Absolute Monos (auto) 0.9 10^3/uL (0.1-0.6) H 01/25/25 20:08
Absolute Eos (auto) 0.1 10^3/uL (0-0.7) 01/25/25 20:08
Absolute Basos (auto) 0.0 10^3/uL (0-0.2) 01/25/25 20:08
Immature Gran % 0.3 % (0-0.5) 01/25/25 20:08
Neutrophils % 59.8 % (42.2-75.2) 01/25/25 20:08
Lymphocytes % 26.3 % (20.5-51.1) 01/25/25 20:08
Monocytes % 12.3 % (1.7-9.3) H 01/25/25 20:08
Eosinophils % 0.8 % (0-6) 01/25/25 20:08
Basophils % 0.5 % (0-2) 01/25/25 20:08
Nucleated RBC % 0 % (-) 01/25/25 20:08
APTT 93.5 Sec (23.4-35.0) H 01/26/25 07:16
Sodium 142 mmol/L (135-145) 01/25/25 20:08
Potassium 4.2 mmol/L (3.5-5.1) 01/25/25 20:08
Chloride 108 mmol/L (98-107) H 01/25/25 20:08
Carbon Dioxide 30 mmol/L (22-30) 01/25/25 20:08
BUN 40 mg/dl (9-20) H 01/25/25 20:08
Creatinine 0.8 mg/dL (0.7-1.3) 01/25/25 20:08
eGFR > 60.00 01/25/25 20:08
Glucose 104 mg/dl (70-99) H 01/25/25 20:08
Calcium 9.8 mg/dl (8.4-10.2) 01/25/25 20:08
Total Bilirubin 0.6 mg/dl (0.2-1.3) 01/25/25 20:08
AST 19 U/L (17-59) 01/25/25 20:08
ALT 13 U/L (0-50) 01/25/25 20:08
Alkaline Phosphatase 148 U/L (38-126) H 01/25/25 20:08
Total Protein 6.3 g/dl (6.3-8.2) 01/25/25 20:08
Albumin 3.8 g/dl (3.5-5.0) 01/25/25 20:08
�
Diagnostic Results:�as per HPI�
Left knee xray - 01/26/2025
�There is marked beam hardening artifact from left knee arthroplasty. No gross findings are seen to suggest recent cortical fracture of the distal left femur, proximal left tibia and proximal left fibula, limited by beam hardening artifact. There
may be a small suprapatellar effusion, markedly limited by beam hardening artifact. Defect is seen in the intramedullary portion of the distal right femur likely the sequela of prior intramedullary hannah removal. There are some suspected small joint
loose bodies.
IMPRESSION:
Left knee arthroplasty with marked beam hardening artifact.No gross findings to suggest acute fracture.
Assessment: 78-year-old male status post left total knee replacement in December with appropriate recovery presented to hospital with worsening pain and ambulation due to trauma to the knee while getting into his car. Found to have possible left
lateral femoral condyle fracture on CT scan.
�
Plan�
PM&R�PT/OT to increase independence with ADLs, improve balance, coordination, endurance, strength, mobility, community reintegration, decreased burden of care on others and family education.�
Ambulatory Dysfunction:�due to traumatized left knee. Concern for left lateral femoral condyle fracture. No surgical intervention for the time being. Xray of left knee to be repeated on Tuesday. TTWB, Knee immobilizer on at all times, except for
showering and ice marion. PT/OT.
Status post unilateral TKA 12/31/2024: by Dr. Cole. To complete Keflex post op prophylaxis until 02/15/2025
Parkinson's disease: Sinemet
HTN: Lasix 40 mg noon, Imdur 30 mg ER at noon, monitor��
HLD: Not on medication, statin allergy
Coronary artery disease�: Aspirin, Plavix, statin, beta-nicol��
Anemia: likely multifactorial
FEN:�Regular diet.�
Pain: Oxycodone, OxyContin 10 mg,�Gabapentin 300 mg at night, ice pack, baclofen 5 mg tid
Bowel: Colace,.� MiraLAX
Bladder/BPH: Frias. Tamsulosin 0.4 mg daily as needed
GERD: Pepcid 20mg daily
DVT Prophylaxis: Factor V Leiden gene mutation, history of recurrent DVT, s/p IVC filter placement- Eliquis, no mechanical with history of DVTs, do not want to propagate clot.
Pulmonary: Incentive spirometry��
Safety: Continue to reinforce assistance with all transfers.��
Code Status:� Full code
Functional and Medical Goals:�Modified Independent with ADL�s, ambulation, transfers�
Discharge disposition: SNF
�
SUMMARY: Patient with ambulatory dysfunction secondary to recent trauma to left knee after appropriate recovery time after total knee replacement. Currently on knee immobilizer and on toe-touch only weightbearing precautions,would benefit from SNF
to give him adequate time to heal and also continue PT/OT . Patient already has a bad right knee that he would have to heavily rely on for weightbearing and transfers.
�
Thank you for allowing me to care for your patient. Please contact me with any questions or concerns.
Consultation
-
Date/Time Consultation Requested: 01/27/2025
Date/Time Consultation Performed: 01/29/2025
Requesting Provider: Chaz Ramirez Do
Performing Provider: estela Flaherty/Dr. Torres
Reason for Consultation: Femur Frature

Documented by User: Allan Torres MD 01/29/25 23:02
Consultation - Medical
-
Referring Provider:�Chaz Ramirez Do
Chief Complaint:�Ambulatory dysfunction s/p trauma to left knee post CLEMENTINE
�
History of Present Illness:�74 year old Male with PMH of (Parkinson's, Factor V leiden, DVT on ELiquis, CAD with stent, HTN, Hypercholesterolemia, GERD, Chronic back pain on opioids, chronic leg left/foot swelling, s/p Left TKA on 12/31/24 by
Gabriel Cole then discharged from [place] [facility] to home who came to the hospital on 01/25/2025 after worsening pain with ambulation since traumatizing his leg while getting into his car [address] concerning Fracture LEFT distal femur
(lateral condyle)
Seen by surgeon- No plan for acute surgical intervention for knee revision given fracture/bone quality. Plan to allow for healing and to follow closely with serial radiographs. Based on how the femoral component settles, as there is concern for
loosening. For now TTWB LLE on walker/assistance. KI to remain place at all times except showering. If awake may loosen KI to ice. Pain control monitored closely, as he is on chronic opioids. Continue Plavix and Eliquis and Cephalexin post op for 30
days till 02/15/25. if still admitted by Tuesday of this week would repeat x-rays on the left knee.
Past Medical History:�Parkinson's, Factor V leiden, ASCVD, HTN, Hypercholesterolemia, GERD, Chronic back pain on opioids followed by pain management, Osteoarthritis, degenerative disc disease, Parkinson's disease, recurrent DVT on Eliquis, factor V
Leiden, CAD, MARCO ANTONIO, GERD, BPH, pilonidal cyst, h/o Barett's esophagus
Procedure History:�Cardiac stent, pilonidal cyst surgery, cholecystectomy, lumbar decompression with washout secondary to staph infection. Let TKA, Galo filter,Cholecystectomy,
Family History:�CAD ( Both Parents ), Cancer (Brother- lung cancer with brain mets), Hypertension (Both parents) and Other (Son and daughter- MS)
�
Social History:�
Functional Level Premorbidly:�Independent with all activities�
Functional Level Currently:�Eating�independent, grooming�set up, lower extremity self-care�dependent, bed mobility-mod��max assist, transfers�max assist,
�
�
Tobacco:�Former smoker
Alcohol:�Denies�
Drug use:�Denies�
Lives With:�Spouse
24-hour assistance available:�Yes
Number of floors:�2
# steps to enter:�1+1
# steps to second floor:�Full flight
Potential First Floor Set Up:�Yes, has private room
Driving:�Yes up to 1 mile
Occupation:�Retired
�
�
Allergies:�
Allergy/AdvReac Type Severity Reaction Status Date / Time
acetaminophen (From Tylenol) Allergy elevated Verified 12/31/24 08:35
liver
enzymes
morphine (From MS Contin) Allergy Brain Verified 12/31/24 08:35
disconnect-
couldn't
walk or
move body
[id number] Reductase Allergy myalgias, Verified 12/31/24 08:35
Inhibitor felt out
of it
�
Review of Systems:�
Constitutional: (x) Normal _
Eye: (x) Normal _
Ear/Nose/Throat: (x) Normal _
Respiratory: (x) Normal _
Cardiovascular: (x) Normal _
Gastrointestinal: (x) Normal _
Genitourinary: (x) Normal _
Musculoskeletal: (x) abNormal _left knee pain, s/p tka, chronic LLE swelling, DVT, right knee pain, elbows
Integumentary: (x) Normal _
Neurologic: (x) abNormal _parkinson's
Psychiatric: (x) Normal _
Endocrine: (x) Normal _
Hematologic/Lymphatic: (x) Normal _
Allergic/Immunologic: (x) Normal _
�
Medications:�
Active Current Visit Medication List
Category Date Time Status
Apixaban Eliquis Med 01/26/25 10:30 Active
5 mg PO BID
Baclofen [Lioresal] Med 01/26/25 02:22 Active
5 mg PO TID PRN Muscle tightness
Carbidopa/Levodopa [Sinemet 25-100] Med 01/26/25 04:00 Active
1.5 tablet PO TID@0400,1200,2000
Cephalexin Monohydrate [Keflex] Med 01/26/25 08:00 Active
500 mg PO TID
Clopidogrel Bisulfate [Plavix] Med 01/26/25 12:00 Active
75 mg PO NOON
Docusate Sodium [Colace] Med 01/26/25 03:00 Active
100 mg PO BID@1200,0000
Famotidine [Pepcid] Med 01/26/25 22:00 Active
20 mg PO HS
Flush (0.9% Sodium Chloride) [Flush (Nss)] Med 01/26/25 03:00 Active
See Dose Instructions IV PER PROTOCOL
Furosemide [Lasix] Med 01/26/25 08:00 Active
40 mg PO DAILY
Gabapentin [Neurontin] Med 01/26/25 22:00 Active
300 mg PO HS
ISOSORBIDE MONOnitrate ER [Imdur (Extended Release)] Med 01/26/25 08:00 Active
30 mg PO DAILY
Magnesium Hydroxide [Milk of Magnesia] Med 01/26/25 02:22 Active
30 ml PO DAILYPRN PRN
Magnesium Oxide Med 01/26/25 08:00 Active
400 mg PO DAILY
Oxycodone Controlled Release [Oxycontin (Controlled Med 01/26/25 04:00 Active
Release)]
10 mg PO TID@0400,1200,2000
Oxycodone [Roxicodone] Med 01/26/25 02:22 Active
5 mg PO Q6H PRN moderate-severe pain
Polyethylene Glycol Powder [Miralax] Med 01/26/25 08:00 Active
17 grams PO DAILY
Saccharomyces Boulardii [Florastor] Med 01/26/25 08:00 Active
250 mg PO BID
Sennosides [Senokot] Med 01/26/25 08:00 Active
17.2 mg PO BID
Tamsulosin [Flomax] Med 01/26/25 02:22 Active
0.4 mg PO DAILYPRN PRN
�
Vitals:�
Temp Pulse Resp BP Pulse Ox
98.3 F 62 17 157/81 95
01/29/25 03:04 01/29/25 03:04 01/29/25 03:04 01/29/25 03:04 01/29/25 03:04
Height 5 ft 7 in
Actual Weight 90.174 kg
Body Mass Index (BMI) 31.2
�
Physical Exam:�
General Appearance/Observation: Well-developed, well-nourished male in no apparent distress.�
Pain/Comfort Assessment: left knee, right knee
Mood/Affect: Appropriate�
�
Integumentary/Operative Site:�
�� Pressure Ulcer Evaluation: absent over heels.�
�
Eyes: Conjunctiva/Lids: normal���� Pupils: pupils equal round
Ears/Nose/Throat: oral mucosa moist,� throat clear.������������ Lips/Teeth/Gums: normal�
Neck: No muscle spasm or tenderness�
Cardiovascular: Heart: reg, irregular, no murmur�
Pulses: dorsalis pedis 2+ bilaterally�
Respiratory: Respiratory Effort/Chest Expansion: normal������� Auscultation: Clear to auscultation bilaterally�
Gastrointestinal: abdomen not tender, no distension, normal abdominal bowel sounds
Genitourinary: [place] Catheter�with yellow urine
Extremities:�Edema: LLE in immobilizer�Cyanosis: None�Trophic�changes: None
�
Neurology Exam:
Orientation: Alert, Oriented to self, Time, Place�
Memory: Intact for immediate medical concerns
Comprehension: Intact
Two step command: Intact
Naming: Intact
Cranial Nerves:
�� CNII:�Pupillary light reflex: Intact����Visual Field: Intact
�� CN III, IV, : Extraocular muscles: Intact�
��
��CN VII:�Facial movement: Symmetric mildly decreased movement symmetrically
�� CN VIII:�Hearing: Normal
�� CN IX/X:�Speech & swallow: Normal,�Position of Uvula: Midline
�� CN XI:�Shoulder shrug: Symmetric
�� CN XII:�Tongue protrusion: Midline
Sensory:
�� Light touch: Intact in bilateral upper and right lower extremities, LLE not tested
��
�
Reflexes:
�� Biceps: 2+ bilaterally
�� Brachioradialis: 2+ bilaterally
�� Triceps: 2+ bilaterally
�� Patellar: deferred bilaterally
�� Achilles: absent bilaterally
�� Babinski: Down going bilaterally
�� Clonus: None
�� Nixon: Negative bilaterally�
Cerebellar: Dysmetria/Ataxia: None�
Musculoskeletal: Motor: (Manual muscle scale 0-5)��
Muscle SA EF WE EE FF FA HF KE DF EHL PF
Right� 5 5 5 5 5 4 4 5 5 5 5
Left 5 5 5 5 5 4 NT NT 5 5 5
�* LLE in Immobilizer
Tone: Normal in all extremities, ��
Range of Motion: Generalized arthritic changes limiting motion
�
�
Lab Results:
Labs
WBC 7.0 10^3/uL (4.8-10.8) 01/26/25 00:50
RBC 3.83 10^6/uL (4.70-6.10) L 01/26/25 00:50
Hgb 11.7 g/dL (13.0-18.0) L 01/26/25 00:50
Hct 36.8 % (39.0-52.0) L 01/26/25 00:50
MCV 96.1 fL (80.0-94.0) H 01/26/25 00:50
MCH 30.5 pg (27.0-31.0) 01/26/25 00:50
MCHC 31.8 g/dL (33.0-37.0) L 01/26/25 00:50
RDW 14.9 % (11.5-14.5) H 01/26/25 00:50
Plt Count 338 10^3/uL (130-400) 01/26/25 00:50
MPV 8.5 fL (7.4-10.4) 01/26/25 00:50
Abs Immat Gran (auto) 0.0 10^3/uL (0-0.05) 01/25/25 20:08
Absolute Neuts (auto) 4.4 10^3/uL (1.4-6.5) 01/25/25 20:08
Absolute Lymphs (auto) 1.9 10^3/uL (1.2-3.4) 01/25/25 20:08
Absolute Monos (auto) 0.9 10^3/uL (0.1-0.6) H 01/25/25 20:08
Absolute Eos (auto) 0.1 10^3/uL (0-0.7) 01/25/25 20:08
Absolute Basos (auto) 0.0 10^3/uL (0-0.2) 01/25/25 20:08
Immature Gran % 0.3 % (0-0.5) 01/25/25 20:08
Neutrophils % 59.8 % (42.2-75.2) 01/25/25 20:08
Lymphocytes % 26.3 % (20.5-51.1) 01/25/25 20:08
Monocytes % 12.3 % (1.7-9.3) H 01/25/25 20:08
Eosinophils % 0.8 % (0-6) 01/25/25 20:08
Basophils % 0.5 % (0-2) 01/25/25 20:08
Nucleated RBC % 0 % (-) 01/25/25 20:08
APTT 93.5 Sec (23.4-35.0) H 01/26/25 07:16
Sodium 142 mmol/L (135-145) 01/25/25 20:08
Potassium 4.2 mmol/L (3.5-5.1) 01/25/25 20:08
Chloride 108 mmol/L (98-107) H 01/25/25 20:08
Carbon Dioxide 30 mmol/L (22-30) 01/25/25 20:08
BUN 40 mg/dl (9-20) H 01/25/25 20:08
Creatinine 0.8 mg/dL (0.7-1.3) 01/25/25 20:08
eGFR > 60.00 01/25/25 20:08
Glucose 104 mg/dl (70-99) H 01/25/25 20:08
Calcium 9.8 mg/dl (8.4-10.2) 01/25/25 20:08
Total Bilirubin 0.6 mg/dl (0.2-1.3) 01/25/25 20:08
AST 19 U/L (17-59) 01/25/25 20:08
ALT 13 U/L (0-50) 01/25/25 20:08
Alkaline Phosphatase 148 U/L (38-126) H 01/25/25 20:08
Total Protein 6.3 g/dl (6.3-8.2) 01/25/25 20:08
Albumin 3.8 g/dl (3.5-5.0) 01/25/25 20:08
�
Diagnostic Results:�as per HPI�
Left knee xray - 01/26/2025
�There is marked beam hardening artifact from left knee arthroplasty. No gross findings are seen to suggest recent cortical fracture of the distal left femur, proximal left tibia and proximal left fibula, limited by beam hardening artifact. There
may be a small suprapatellar effusion, markedly limited by beam hardening artifact. Defect is seen in the intramedullary portion of the distal right femur likely the sequela of prior intramedullary hannah removal. There are some suspected small joint
loose bodies.
IMPRESSION:
Left knee arthroplasty with marked beam hardening artifact.No gross findings to suggest acute fracture.
Assessment: 78-year-old male status post left total knee replacement in December with appropriate recovery presented to hospital with worsening pain and ambulation due to trauma to the knee while getting into his car. Found to have possible left
lateral femoral condyle fracture on CT scan.
�
Plan�
PM&R�PT/OT to increase independence with ADLs, improve balance, coordination, endurance, strength, mobility, community reintegration, decreased burden of care on others and family education.�
Ambulatory Dysfunction:�due to traumatized left knee. Concern for left lateral femoral condyle fracture. No surgical intervention for the time being. Xray of left knee to be repeated on Tuesday. TTWB, Knee immobilizer on at all times, except for
showering and ice marion. PT/OT.
Status post unilateral TKA 12/31/2024: by Dr. Cole. To complete Keflex post op prophylaxis until 02/15/2025
Parkinson's disease: Sinemet
HTN: Lasix 40 mg noon, Imdur 30 mg ER at noon, monitor��
HLD: Not on medication, statin allergy
Coronary artery disease�: Aspirin, Plavix, statin, beta-nicol��
Anemia: likely multifactorial
FEN:�Regular diet.�
Pain: Oxycodone, OxyContin 10 mg,�Gabapentin 300 mg at night, ice pack, baclofen 5 mg tid
Bowel: Colace,.� MiraLAX
Bladder/BPH: Frias. Tamsulosin 0.4 mg daily as needed
GERD: Pepcid 20mg daily
DVT Prophylaxis: Factor V Leiden gene mutation, history of recurrent DVT, s/p IVC filter placement- Eliquis, no mechanical with history of DVTs, do not want to propagate clot.
Pulmonary: Incentive spirometry��
Safety: Continue to reinforce assistance with all transfers.��
Code Status:� Full code
Functional and Medical Goals:�Modified Independent with ADL�s, ambulation, transfers�
Discharge disposition: SNF
Attending Statement: I saw and examined the patient today.� Reviewed care plan with patient, therapy, and physician camp assistant.� I agree with the above subjective and physical exam, and plan as documented by NELY Flaherty with adjustments made as
necessary. A total of 60 minutes were spent with the patient preparing for the evaluation, obtaining history, performing examination and evaluation, counseling, data review, case management, care coordination, ordering machine operator, and EMR documentation.
�
SUMMARY: Patient with ambulatory dysfunction secondary to recent trauma to left knee after appropriate recovery time after total knee replacement. Currently on knee immobilizer and on toe-touch only weightbearing precautions,would benefit from SNF
to give him adequate time to heal and also continue PT/OT . Patient already has a bad right knee that he would have to heavily rely on for weightbearing and transfers.
�
Thank you for allowing me to care for your patient. Please contact me with any questions or concerns.
[2025-01-29] MEDS: PEPCID 20 MG PO (21:44)
[2025-01-29] MEDS: NEURONTIN PO (21:45)
[2025-01-30] VITALS (7 sets, daily range): BP systolic 106–147; BP diastolic 68–79; PULSE 80–88
--- NOTE | 2025-01-30 02:19 | DOWNTIME ---
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 Downtime documentation of patient's care, including medication administrations, has been reconciled in the electronic record per guidelines. Refer to the
patient's paper chart under the miscellaneous tab to see printed paper medication records and downtime forms.
[2025-01-30] MEDS: SINEMET 25-100 1.5 TABLET PO ×3 (03:55→22:54)
[2025-01-30] MEDS: OXYCONTIN (CONTROLLED RELEASE) 10 MG PO ×3 (03:55→22:48)
[2025-01-30] MEDS: SENOKOT 17.2 MG PO ×2 (07:14→22:48)
[2025-01-30] MEDS: MIRALAX PO (07:14)
[2025-01-30] MEDS: IMDUR (EXTENDED RELEASE) 30 MG PO (07:14)
[2025-01-30] MEDS: FLORASTOR 250 MG PO ×2 (07:14→22:49)
[2025-01-30] MEDS: ELIQUIS 5 MG PO ×2 (07:14→22:49)
[2025-01-30] MEDS: MAGNESIUM OXIDE 400 MG PO (07:15)
[2025-01-30] MEDS: KEFLEX 500 MG PO ×3 (07:18→22:48)
[2025-01-30] MEDS: LASIX 40 MG PO (07:18)
--- NOTE | 2025-01-30 07:19 | W.PN.UPDATE ---
Update Note
Progress Note Update
Mr. Martinez is resting comfortably in bed this morning. He is 4 weeks s/p left TKA with left femoral condylar fracture. He endorses continued pain and spasms about the knee. He continues to endorse difficulty getting around with his knee immobilizer
and weight bearing restrictions.
Directed exam of the left lower extremity reveals expected edema about the knee. Calf soft and nontender. NVID.
Plan:
Continue with TTWB on walker and knee immobilizer in place real time analyst. May remove to apply ice. Continue anticoagulation. No plan for acute surgical intervention. Continue with PT/OT as able. I have ordered an updated x-ray of the knee to assess
for interval changes of the fracture. Will continue to follow while inpatient.
--- NOTE | 2025-01-30 09:16 | W.PN.HOSP.TC ---
Today's Communication/Plan
-
Discharge to rehab when bed available
Assessment / Plan
Assessment / Plan
74yo M with PMHX of Parkinson, Factor V leuden, DVY on ELiquis, ASCVD, L TKA 12/31/24 with appropriate recovery came after worsening pain and ambulation since he traumatized his leg while getting into the car after doctors appt 1 week befoe current
admission. CT concerning Fracture LEFT distal femur (lateral condyle) s/p LEFT TKA. As per Ortho - conservative mgmt, pending acute rehab, physiatry consult pending
A/P:
#L TKA s/p trauma, concern for L Lateral condyle Fx
Ortho consult: conservative mgmt, follow up in 1 week.
Pain mgmt, PT/OT - rec SNF, ortho rec acute rehab, physiatry saw patient 01/28
Cephalexin planned by ortho for 30 days s/p TKA till 02/15/25
L knee XRs repeated 01/30, results reviewed
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
#Chronic pain with chronic daily opioid use, unknown if there is dependency
Continue pain meds
# Opioid-induced constipation
Patient requires magnesium citrate to have bowel movements despite laxatives
Continue aggressive bowel regimen, and magnesium citrate as needed
#DVT
#Factor V Leiden
Continue Eliquis
#ASCVD
Continue statin, Plavix, Imdur
#Parkinson disease
Continue Sinemet
#Irregular HR
EKG shows sinus rhythm with PACs
DVT ppx Eliquis
Full code
Total time spent to see the patient on the floor, examine the patient, review data and lab results, discuss treatment plan with patient, nursing staff around 36 minutes.
Physical Exam
General: No acute distress
HEENT: Normocephalic, Atraumatic, EOMI, MMM
Respiratory: Clear to Auscultation bilaterally
Cardiac: Normal S1/S2, Regular Rate and Rhythm
GI: Soft, Nontender, Nondistended, Normal Bowel Sounds
Extremities: No Clubbing, Cyanosis, or Edema
Neuro: Nonfocal/Grossly Intact
Psych: Calm, Cooperative
Anticipated Discharge: Within 24 hours
Subjective/Interval History
-
Date of Service: January 30, 2025
No acute events. Patient continues to have knee pain, that is tolerable with oxycodone. Denies chest pain, denies fever.
Objective Data
-
Vital Signs:
Vital Signs
Temp Pulse Resp BP Pulse Ox
98.2 F 61 17 143/79 96
01/30/25 07:31 01/30/25 07:31 01/30/25 07:31 01/30/25 07:31 01/30/25 08:15
I&O
01/29/25 01/30/25 01/31/25
06:59 06:59 06:59
Intake Total 1280 / 1280 1820 / 1820
Output Total 2650 / 2650 1600 / 1600
Balance -1370 / -1370 220 / 220
[2025-01-30] MEDS: PLAVIX 75 MG PO (11:58)
[2025-01-30] MEDS: COLACE 100 MG PO ×2 (11:58→22:54)
[2025-01-30] MEDS: NEURONTIN 300 MG PO (22:49)
[2025-01-30] MEDS: PEPCID 20 MG PO (22:49)
[2025-01-31] MEDS: OXYCONTIN (CONTROLLED RELEASE) 10 MG PO ×3 (04:16→20:12)
[2025-01-31] MEDS: SINEMET 25-100 1.5 TABLET PO ×3 (04:17→20:11)
[2025-01-31 07:22] VITALS: BP 119/63
[2025-01-31] MEDS: LASIX 40 MG PO (07:51)
[2025-01-31] MEDS: MAGNESIUM OXIDE 400 MG PO (07:51)
[2025-01-31] MEDS: FLORASTOR 250 MG PO ×2 (07:51→20:12)
[2025-01-31] MEDS: IMDUR (EXTENDED RELEASE) 30 MG PO (07:51)
[2025-01-31] MEDS: ELIQUIS 5 MG PO ×2 (07:51→20:12)
[2025-01-31] MEDS: SENOKOT 17.2 MG PO ×2 (07:51→20:12)
[2025-01-31] MEDS: MIRALAX 17 GRAMS PO (07:51)
[2025-01-31] MEDS: KEFLEX 500 MG PO ×3 (07:55→21:58)
--- NOTE | 2025-01-31 09:10 | W.PN.HOSP.TC ---
Today's Communication/Plan
-
[facility]
Discharge to short-term rehab when bed available
Assessment / Plan
Assessment / Plan
74yo M with PMHX of Parkinson, Factor V leuden, DVY on ELiquis, ASCVD, L TKA 12/31/24 with appropriate recovery came after worsening pain and ambulation since he traumatized his leg while getting into the car after doctors appt 1 week befoe current
admission. CT concerning Fracture LEFT distal femur (lateral condyle) s/p LEFT TKA. As per Ortho - conservative mgmt, pending acute rehab, physiatry consult pending
A/P:
#L TKA s/p trauma, concern for L Lateral condyle Fx
Ortho consult: conservative mgmt, follow up in 1 week.
Pain mgmt, PT/OT - rec SNF, ortho rec acute rehab, physiatry saw patient 01/28
Cephalexin planned by ortho for 30 days s/p TKA till 02/15/25
L knee XRs repeated 01/30, results reviewed
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
#Chronic pain with chronic daily opioid use, unknown if there is dependency
Continue pain meds
# Opioid-induced constipation
Patient requires magnesium citrate to have bowel movements despite laxatives
Continue aggressive bowel regimen
01/31 Magnesium citrate today
#DVT
#Factor V Leiden
Continue Eliquis
#ASCVD
Continue statin, Plavix, Imdur
#Parkinson disease
Continue Sinemet
#Irregular HR
EKG shows sinus rhythm with PACs
DVT ppx Eliquis
Full code
Total time spent to see the patient on the floor, examine the patient, review data and lab results, discuss treatment plan with patient, nursing staff around 35 minutes.
Physical Exam
General: No acute distress
HEENT: Normocephalic, Atraumatic, EOMI, MMM
Respiratory: Clear to Auscultation bilaterally
Cardiac: Normal S1/S2, Regular Rate and Rhythm
GI: Soft, Nontender, Nondistended, Normal Bowel Sounds
Extremities: No Clubbing, Cyanosis, or Edema
Neuro: Nonfocal/Grossly Intact
Psych: Calm, Cooperative
Anticipated Discharge: Within 24 hours
Subjective/Interval History
-
Date of Service: January 31, 2025
Patient continues to have knee pain with movement. Complains of constipation, last bowel movement Tuesday, 3 days ago. Denies chest pain, denies shortness of breath. No fever, no vomiting.
Objective Data
-
Vital Signs:
Vital Signs
Temp Pulse Resp BP Pulse Ox
98.0 F 60 18 119/63 96
01/31/25 07:22 01/31/25 07:22 01/31/25 07:22 01/31/25 07:22 01/31/25 07:22
I&O
01/30/25 01/31/25 02/01/25
06:59 06:59 06:59
Intake Total 1820 / 1820 1500 / 1500
Output Total 1600 / 1600 1450 / 1450
Balance 220 / 220 50 / 50
--- NOTE | 2025-01-31 09:15 | CM ---
Pt has been denied for admission to [facility]. CM to discuss SNF options with patient who is ready for discharge to SNF today.
[2025-01-31] MEDS: COLACE 100 MG PO ×2 (12:36→21:59)
[2025-01-31] MEDS: PLAVIX 75 MG PO (12:36)
[2025-01-31 14:49] VITALS: BP 141/67; PULSE 78
--- NOTE | 2025-01-31 15:07 | CM ---
Pt has been denied for admission to Acute Rehab. SNF recommended. Pt is interested in [facility] SNF, as it is near to his home.
CM to f/u to determine bed availability and update Satish once I have more information.
[2025-01-31 15:16] VITALS: BP 125/66
[2025-01-31] MEDS: CITROMA 300 ML PO (15:23)
[2025-01-31] MEDS: NEURONTIN 300 MG PO (21:58)
[2025-01-31] MEDS: ROXICODONE 5 MG PO (21:58)
[2025-01-31] MEDS: PEPCID 20 MG PO (21:58)
[2025-01-31 23:00] VITALS: BP 137/70
[2025-02-01] MEDS: SINEMET 25-100 1.5 TABLET PO ×3 (04:38→20:48)
[2025-02-01] MEDS: OXYCONTIN (CONTROLLED RELEASE) 10 MG PO ×3 (04:38→20:50)
[2025-02-01 07:16] VITALS: BP 142/82
--- NOTE | 2025-02-01 07:58 | W.PN.UPDATE ---
Update Note
Progress Note Update
Mr. Martinez is resting comfortably in bed this morning. He is 4 weeks s/p left TKA with left femoral condylar fracture. He endorses continued pain and spasms about the knee. He denies any significant improvement over the last few days. He continues
to endorse difficulty getting around with his knee immobilizer and weight bearing restrictions. He appears rather discouraged him morning.
Directed exam of the left lower extremity reveals expected edema about the knee. Calf soft and nontender. NVID.
Updated x-ray from Tuesday reveals overall maintained alignment of fracture. There does appear to be some loosening of the femoral component on lateral.
Plan:
--Satish's x-rays were reviewed with him today, and I assured him that the fracture remains stable. I explained that with these cases, especially with femoral component loosening, he may likely require surgical intervention in the future for a knee
revision. We do not plan on any surgery for now. At this time, we want to ensure the fracture heals up fully so that the bone is healthy and strong to allow for a stable revision in the future. I explained that we likely wouldn't do revision surgery
for 6 months to a year. He verbalized understanding.
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 May remove to apply ice. Continue anticoagulation. Continue with PT/OT as able. Will continue to follow while inpatient.
--- NOTE | 2025-02-01 09:02 | W.PN.HOSP.TC ---
Today's Communication/Plan
-
Discharge to short-term rehab when bed available
Assessment / Plan
Assessment / Plan
74yo M with PMHX of Parkinson, Factor V leuden, DVY on ELiquis, ASCVD, L TKA 12/31/24 with appropriate recovery came after worsening pain and ambulation since he traumatized his leg while getting into the car after doctors appt 1 week befoe current
admission. CT concerning Fracture LEFT distal femur (lateral condyle) s/p LEFT TKA. As per Ortho - conservative mgmt, pending acute rehab, physiatry consult pending
A/P:
#L TKA s/p trauma, concern for L Lateral condyle Fx
Ortho consult: conservative mgmt, follow up in 1 week.
Pain mgmt, PT/OT - rec SNF, ortho rec acute rehab, physiatry saw patient 01/28
Cephalexin planned by ortho for 30 days s/p TKA till 02/15/25
L knee XRs repeated 01/30, results showed stabilization of fracture
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
#Chronic pain with chronic daily opioid use, unknown if there is dependency
Continue pain meds
# Opioid-induced constipation
Patient requires magnesium citrate to have bowel movements despite laxatives
Continue aggressive bowel regimen
01/31 Magnesium citrate w/ BM
He can be discharged to rehab on magnesium citrate every 72 hours
#DVT
#Factor V Leiden
Continue Eliquis
#ASCVD
Continue statin, Plavix, Imdur
#Parkinson disease
Continue Sinemet
#Irregular HR
EKG shows sinus rhythm with PACs
DVT ppx Eliquis
Full code
Total time spent to see the patient on the floor, examine the patient, review data and lab results, discuss treatment plan with patient, nursing staff around 35 minutes.
Physical Exam
General: No acute distress
HEENT: Normocephalic, Atraumatic, EOMI, MMM
Respiratory: Clear to Auscultation bilaterally
Cardiac: Normal S1/S2, Regular Rate and Rhythm
GI: Soft, Nontender, Nondistended, Normal Bowel Sounds
Extremities: No Clubbing, Cyanosis, or Edema
Neuro: Nonfocal/Grossly Intact
Psych: Calm, Cooperative
Anticipated Discharge: Within 24 hours
Subjective/Interval History
-
Date of Service: February 01, 2025
Patient feels better after having a bowel movement yesterday. He continues to have pain of his left knee with movement. Denies chest pain, denies shortness of breath. No fever, no vomiting.
Objective Data
-
Vital Signs:
Vital Signs
Temp Pulse Resp BP Pulse Ox
98.1 F 69 18 142/82 99
02/01/25 07:16 02/01/25 07:16 02/01/25 07:16 02/01/25 07:16 02/01/25 07:16
I&O
01/31/25 02/01/25 02/02/25
06:59 06:59 06:59
Intake Total 1500 / 1500 720 / 720
Output Total 1450 / 1450 650 / 650
Balance 50 / 50 70 / 70
[2025-02-01] MEDS: MIRALAX 17 GRAMS PO (09:31)
[2025-02-01] MEDS: LASIX 40 MG PO (09:31)
[2025-02-01] MEDS: KEFLEX 500 MG PO ×3 (09:31→20:49)
[2025-02-01] MEDS: ELIQUIS 5 MG PO ×2 (09:31→20:43)
[2025-02-01] MEDS: MAGNESIUM OXIDE 400 MG PO (09:31)
[2025-02-01] MEDS: IMDUR (EXTENDED RELEASE) 30 MG PO (09:31)
[2025-02-01] MEDS: SENOKOT 17.2 MG PO ×2 (09:31→20:43)
[2025-02-01] MEDS: FLORASTOR 250 MG PO ×2 (09:31→20:43)
[2025-02-01] MEDS: PLAVIX 75 MG PO (13:15)
[2025-02-01 13:21] LABS: COVID-19 Antigen Negative (Negative)
[2025-02-01] MEDS: COLACE 100 MG PO (13:28)
[2025-02-01] MEDS: FLUZONE HIGH-DOSE 2025-26 0.5 ML IM (13:28)
[2025-02-01 15:26] VITALS: BP 128/70
[2025-02-01 15:59] VITALS: BP 120/65; PULSE 85
[2025-02-01] MEDS: PEPCID 20 MG PO (20:44)
[2025-02-01] MEDS: NEURONTIN 300 MG PO (20:44)
[2025-02-01 23:00] VITALS: BP 125/66
[2025-02-02] MEDS: COLACE 100 MG PO ×2 (01:23→12:16)
[2025-02-02] MEDS: OXYCONTIN (CONTROLLED RELEASE) 10 MG PO ×3 (03:32→21:07)
[2025-02-02] MEDS: SINEMET 25-100 1.5 TABLET PO ×3 (03:32→21:07)
--- NOTE | 2025-02-02 07:44 | W.PN.HOSP.TC ---
Today's Communication/Plan
-
Discharge to short-term rehab when bed available
Assessment / Plan
Assessment / Plan
74yo M with PMHX of Parkinson, Factor V leuden, DVY on ELiquis, ASCVD, L TKA 12/31/24 with appropriate recovery came after worsening pain and ambulation since he traumatized his leg while getting into the car after doctors appt 1 week befoe current
admission. CT concerning Fracture LEFT distal femur (lateral condyle) s/p LEFT TKA. As per Ortho - conservative mgmt, pending acute rehab, physiatry consult pending
A/P:
#L TKA s/p trauma, concern for L Lateral condyle Fx
Ortho consult: conservative mgmt, follow up in 1 week.
Pain mgmt, PT/OT - rec SNF, ortho rec acute rehab, physiatry saw patient 01/28
Cephalexin planned by ortho for 30 days s/p TKA till 02/15/25
L knee XRs repeated 01/30, results showed stabilization of fracture
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
#Chronic pain with chronic daily opioid use, unknown if there is dependency
Continue pain meds
# Opioid-induced constipation
Patient requires magnesium citrate to have bowel movements despite laxatives
Continue aggressive bowel regimen
01/31 Magnesium citrate w/ BM
He can be discharged to rehab on magnesium citrate every 72 hours
#DVT
#Factor V Leiden
Continue Eliquis
#ASCVD
Continue statin, Plavix, Imdur
#Parkinson disease
Continue Sinemet
#Irregular HR
EKG shows sinus rhythm with PACs
DVT ppx Eliquis
Full code
Total time spent to see the patient on the floor, examine the patient, review data and lab results, discuss treatment plan with patient, nursing staff around 35 minutes.
Physical Exam
General: No acute distress
HEENT: Normocephalic, Atraumatic, EOMI, MMM
Respiratory: Clear to Auscultation bilaterally
Cardiac: Normal S1/S2, Regular Rate and Rhythm
GI: Soft, Nontender, Nondistended, Normal Bowel Sounds
Extremities: No Clubbing, Cyanosis, or Edema
Neuro: Nonfocal/Grossly Intact
Psych: Calm, Cooperative
Anticipated Discharge: Within 24 hours
Subjective/Interval History
-
Date of Service: February 02, 2025
Patient denies chest pain, denies shortness of breath. Continues to have left knee pain, worse with movement. No fever, no vomiting.
Objective Data
-
Vital Signs:
Vital Signs
Temp Pulse Resp BP Pulse Ox
98.2 F 65 18 125/66 96
02/01/25 23:00 02/01/25 23:00 02/01/25 23:00 02/01/25 23:00 02/01/25 23:00
I&O
02/01/25 02/02/25 02/03/25
06:59 06:59 06:59
Intake Total 720 / 720 880 / 880
Output Total 650 / 650 1500 / 1500
Balance 70 / 70 -620 / -620
[2025-02-02 08:08] VITALS: BP 126/74
--- NOTE | 2025-02-02 08:29 | W.PN.UPDATE ---
Update Note
Progress Note Update
Mr. Martinez seems to be doing better on exam this morning. Believes his pain may be lessening. Doing better with PT and was able to walk farther yesterday following his TTWB restrictions. Plan is for d/c to [facility] if there is a bed available.
Plan:
--X-rays show fracture remains stable. I explained that with these cases, especially with femoral component loosening, he may likely require surgical intervention in the future for a knee revision. We do not plan on any surgery for now. At this
time, we want to ensure the fracture heals up fully so that the bone is healthy and strong to allow for a stable revision in the future. I explained that we likely wouldn't do revision surgery for 6 months to a year. He verbalized understanding.
--Continue with TTWB on walker and knee immobilizer in place timekeeper. May remove to apply ice. Continue anticoagulation. Continue with PT/OT as able. Will continue to follow while inpatient.
[2025-02-02] MEDS: FLORASTOR 250 MG PO ×2 (09:03→21:07)
[2025-02-02] MEDS: KEFLEX 500 MG PO ×3 (09:03→21:07)
[2025-02-02] MEDS: MAGNESIUM OXIDE 400 MG PO (09:03)
[2025-02-02] MEDS: SENOKOT 17.2 MG PO ×2 (09:03→21:02)
[2025-02-02] MEDS: IMDUR (EXTENDED RELEASE) 30 MG PO (09:03)
[2025-02-02] MEDS: LASIX 40 MG PO (09:04)
[2025-02-02] MEDS: ELIQUIS 5 MG PO ×2 (09:04→21:02)
[2025-02-02] MEDS: MIRALAX 17 GRAMS PO (09:04)
[2025-02-02 09:27] VITALS: BP 122/67; PULSE 77; O2SAT 97
[2025-02-02] MEDS: PLAVIX 75 MG PO (12:16)
[2025-02-02 16:08] VITALS: BP 104/64
--- NOTE | 2025-02-02 17:26 | CM ---
Addendum entered by Rima Lee 02/03/25 08:23:
Pt's admission to [facility] is approved in [facility].
Certification Number
[id number]
Status
CERTIFIED IN TOTAL
Original Note:
Awaiting insurance auth. Called [facility]. Offices are closed on this date, 02/02/25.
[2025-02-02] MEDS: PEPCID 20 MG PO (21:02)
[2025-02-02] MEDS: NEURONTIN 300 MG PO (21:02)
[2025-02-02 23:00] VITALS: BP 121/65
[2025-02-03] MEDS: COLACE 100 MG PO ×2 (00:32→12:31)
[2025-02-03] MEDS: SINEMET 25-100 1.5 TABLET PO ×3 (04:10→21:01)
[2025-02-03] MEDS: OXYCONTIN (CONTROLLED RELEASE) 10 MG PO ×3 (04:12→21:17)
[2025-02-03 07:30] VITALS: BP 127/56
--- NOTE | 2025-02-03 07:57 | W.PN.UPDATE ---
Update Note
Progress Note Update
Mr. Martinez reports continued improvement in regards to his left knee discomfort. Doing better with PT and was able to walk farther yesterday following his TTWB restrictions. Main complaint now is constipation and inability to use bed teixeira to have a
bowel movement. Plan is for d/c to [facility] when bed available and insurance auth is obtained.
Plan:
--X-rays show fracture remains stable. I explained that with these cases, especially with femoral component loosening, he may likely require surgical intervention in the future for a knee revision. We do not plan on any surgery for now. At this
time, we want to ensure the fracture heals up fully so that the bone is healthy and strong to allow for a stable revision in the future. I explained that we likely wouldn't do revision surgery for 6 months to a year. He verbalized understanding.
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 May remove to apply ice. Continue anticoagulation. Continue with PT/OT as able.
--Plan for d/c to [facility] when bed available.
--F/u in office in 2 weeks with repeat x-rays.
--- NOTE | 2025-02-03 08:06 | W.PN.HOSP.TC ---
Today's Communication/Plan
-
COVID test
Discharge to short-term rehab tomorrow
Assessment / Plan
Assessment / Plan
74yo M with PMHX of Parkinson, Factor V leuden, DVY on ELiquis, ASCVD, L TKA 12/31/24 with appropriate recovery came after worsening pain and ambulation since he traumatized his leg while getting into the car after doctors appt 1 week befoe current
admission. CT concerning Fracture LEFT distal femur (lateral condyle) s/p LEFT TKA. As per Ortho - conservative mgmt, pending acute rehab, physiatry consult pending
A/P:
#L TKA s/p trauma, concern for L Lateral condyle Fx
Ortho consult: conservative mgmt, follow up in 1 week.
Pain mgmt, PT/OT - rec SNF, ortho rec acute rehab, physiatry saw patient 01/28
Cephalexin planned by ortho for 30 days s/p TKA till 02/15/25
L knee XRs repeated 01/30, results showed stabilization of fracture
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
#Chronic pain with chronic daily opioid use, unknown if there is dependency
Continue pain meds
# Opioid-induced constipation
Patient requires magnesium citrate to have bowel movements despite laxatives
Continue aggressive bowel regimen
01/31 Magnesium citrate w/ BM
He can be discharged to rehab on magnesium citrate every 72 hours
#DVT
#Factor V Leiden
Continue Eliquis
#ASCVD
Continue statin, Plavix, Imdur
#Parkinson disease
Continue Sinemet
#Irregular HR
EKG shows sinus rhythm with PACs
DVT ppx Eliquis
Full code
Total time spent to see the patient on the floor, examine the patient, review data and lab results, discuss treatment plan with patient, nursing staff around 35 minutes.
Physical Exam
General: No acute distress
HEENT: Normocephalic, Atraumatic, EOMI, MMM
Respiratory: Clear to Auscultation bilaterally
Cardiac: Normal S1/S2, Regular Rate and Rhythm
GI: Soft, Nontender, Nondistended, Normal Bowel Sounds
Extremities: No Clubbing, Cyanosis, or Edema
Neuro: Nonfocal/Grossly Intact
Psych: Calm, Cooperative
Anticipated Discharge: Within 24 hours
Subjective/Interval History
-
Date of Service: February 03, 2025
Patient had a bowel movement this morning. He denies chest pain, denies shortness of breath. Continues to have left knee pain, controlled with his current pain regimen. No fever, no vomiting.
Objective Data
-
Vital Signs:
Vital Signs
Temp Pulse Resp BP Pulse Ox
98.2 F 76 16 127/56 96
02/03/25 07:30 02/03/25 07:30 02/03/25 07:30 02/03/25 07:30 02/03/25 07:30
I&O
02/02/25 02/03/25 02/04/25
06:59 06:59 06:59
Intake Total 880 / 880 1440 / 1440
Output Total 1500 / 1500 1675 / 1675
Balance -620 / -620 -235 / -235
--- NOTE | 2025-02-03 08:33 | CM ---
DICK GUZMAN Patient

Certification Number
[id number]
Status
CERTIFIED IN TOTAL
Date of
1950
Gender
Male
Transaction Type
Inpatient Authorization
[2025-02-03] MEDS: LASIX 40 MG PO (09:41)
[2025-02-03] MEDS: KEFLEX 500 MG PO ×3 (09:41→21:02)
[2025-02-03] MEDS: IMDUR (EXTENDED RELEASE) 30 MG PO (09:42)
[2025-02-03] MEDS: SENOKOT 17.2 MG PO ×2 (09:42→21:02)
[2025-02-03] MEDS: ELIQUIS 5 MG PO ×2 (09:42→21:02)
[2025-02-03] MEDS: MAGNESIUM OXIDE 400 MG PO (09:42)
[2025-02-03] MEDS: MIRALAX 17 GRAMS PO (09:44)
--- NOTE | 2025-02-03 10:11 | CM ---
CM met with Satish today regarding discharge. [facility] cannot accept patient today; will admit tomorrow. Transport forms completed and on pt's chart. HUNG reviewed and Satish gave verbal consent.
Plan: Discharge to [facility] SNF tomorrow, 02/04/2025.
[facility] Report: [phone]
[facility]
[2025-02-03] MEDS: FLORASTOR 250 MG PO ×2 (10:30→21:02)
[2025-02-03 11:07] LABS: COVID-19 Antigen Negative (Negative)
[2025-02-03] MEDS: PLAVIX 75 MG PO (12:31)
[2025-02-03 16:00] VITALS: BP 124/64
[2025-02-03 16:04] VITALS: BP 120/63; PULSE 69; O2SAT 93
[2025-02-03] MEDS: NEURONTIN 300 MG PO (21:03)
[2025-02-03] MEDS: PEPCID 20 MG PO (21:13)
[2025-02-03 23:00] VITALS: BP 124/68
[2025-02-04] MEDS: COLACE PO (00:57)
[2025-02-04] MEDS: SINEMET 25-100 1.5 TABLET PO ×2 (04:46→11:14)
[2025-02-04] MEDS: OXYCONTIN (CONTROLLED RELEASE) 10 MG PO ×2 (04:46→11:05)
[2025-02-04 07:00] VITALS: BP 142/78
[2025-02-04] MEDS: MAGNESIUM OXIDE 400 MG PO (08:13)
[2025-02-04] MEDS: IMDUR (EXTENDED RELEASE) 30 MG PO (08:14)
[2025-02-04] MEDS: KEFLEX 500 MG PO (08:14)
[2025-02-04] MEDS: FLORASTOR 250 MG PO (08:14)
[2025-02-04] MEDS: LASIX 40 MG PO (08:14)
[2025-02-04] MEDS: ELIQUIS 5 MG PO (08:14)
[2025-02-04] MEDS: SENOKOT 17.2 MG PO (08:15)
[2025-02-04] MEDS: MIRALAX PO (08:15)
--- NOTE | 2025-02-04 08:39 | W.PN.UPDATE ---
Update Note
Progress Note Update
Patient with continued improvement in regards to his left knee discomfort. Doing better with PT and following his TTWB restrictions. Transfer to the commode yesterday with little difficulty. Plan is for d/c to [facility] when bed available and
insurance auth is obtained.
Plan:
--X-rays last week show fracture remains stable. I reinforced that with these cases, especially with femoral component loosening, he may likely require surgical intervention in the future for a knee revision. We do not plan on any surgery for now.
At this time, we want to ensure the fracture heals up fully so that the bone is healthy and strong to allow for a stable revision in the future. I explained that we likely wouldn't do revision surgery for 6 months to a year. He again verbalized
understanding.
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 May remove to apply ice. Continue anticoagulation. Continue with PT/OT as able.
--Plan for d/c to [facility] when bed available.
--F/u in office in 2 weeks with repeat x-rays.
--Will follow while inpatient
--- NOTE | 2025-02-04 10:53 | W.PN.HOSP.TC ---
Today's Communication/Plan
-
dc
Assessment / Plan
Assessment / Plan
74yo M with PMHX of Parkinson, Factor V leuden, DVY on ELiquis, ASCVD, L TKA 12/31/24 with appropriate recovery came after worsening pain and ambulation since he traumatized his leg while getting into the car after doctors appt 1 week befoe current
admission. CT concerning Fracture LEFT distal femur (lateral condyle) s/p LEFT TKA. As per Ortho - conservative mgmt, accepted to [facility]. 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 L knee XRs repeated 01/30,
results showed stabilization of fracture. Patient requested COVID-19 booster, however as per pharmacy -not available as inpatient. Recommended to inquire in [facility].
A/P:
#L TKA s/p trauma, concern for L Lateral condyle Fx
Ortho consult: conservative mgmt, follow up in 1 week.
Pain mgmt, PT/OT - rec SNF, ortho rec acute rehab, physiatry saw patient 01/28
Cephalexin planned by ortho for 30 days s/p TKA till 02/15/25
L knee XRs repeated 01/30, results showed stabilization of fracture
Continue with TTWB on walker and knee immobilizer in place second time worker
#Chronic pain with chronic daily opioid use, unknown if there is dependency
Continue pain meds
# Opioid-induced constipation
resolved on Magnesium cystrate
#DVT
#Factor V Leiden
Continue Eliquis
#ASCVD
Continue statin, Plavix, Imdur
#Parkinson disease
Continue Sinemet
#Irregular HR
EKG shows sinus rhythm with PACs
DVT ppx Eliquis
Full code
I have spent at least 38min reviewing chart, test results, communication to consultants and providing direct patient care
Anticipated Discharge: Today
Subjective/Interval History
-
Date of Service: February 04, 2025
Objective Data
-
Vital Signs:
Vital Signs
Temp Pulse Resp BP Pulse Ox
98.3 F 65 18 142/78 97
02/04/25 07:00 02/04/25 07:00 02/04/25 07:00 02/04/25 07:00 02/04/25 07:00
I&O
02/03/25 02/04/25 02/05/25
06:59 06:59 06:59
Intake Total 1440 / 1440 840 / 840
Output Total 1675 / 1675 2600 / 2600
Balance -235 / -235 -1760 / -1760
Review of Systems
-
History Source: Patient
All other systems: Reviewed and negative
Physical Exam
-
General: No Apparent Distress
HEENT: Normocephalic
Cardiac: Regular Rhythm
Neuro: Awake, Alert, Oriented and AO x 3
Psych: Calm
--- NOTE | 2025-02-04 11:02 | W.DCSUMMARY ---
Discharge Summary
Discharge Data
Date of Admission: 01/25/25
Date of Discharge: 02/04/25
-
Pending Results: No
Hospital Course
74yo M with PMHX of Parkinson, Factor V leuden, DVY on ELiquis, ASCVD, L TKA 12/31/24 with appropriate recovery came after worsening pain and ambulation since he traumatized his leg while getting into the car after doctors appt [address] concerning Fracture LEFT distal femur (lateral condyle) s/p LEFT TKA. As per Ortho - conservative mgmt, accepted to [facility]. 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 L knee XRs repeated 01/30,
results showed stabilization of fracture. Patient requested COVID-19 booster, however as per pharmacy -not available as inpatient. Recommended to inquire in [facility].
I have spent at least 38min reviewing chart, test results, communication to consultants and providing direct patient care
Patient was manged for:
#L TKA s/p trauma, concern for L Lateral condyle Fx
#Chronic pain with chronic daily opioid use, unknown if there is dependency
# Opioid-induced constipation
#DVT
#Factor V Leiden
#ASCVD
#Parkinson disease
#Irregular HR
Discharge Plan
-
Patient Disposition: Long Term/SNF
Discharge Diagnosis/Procedures: Probable left femoral condyle fracture around recent left knee replacement
Condition: Good
Diet: Regular
Activity: With assistance, With Walker and Other activity
Additional Activity: Toe-touch weight bearing. Knee immobilizer to remain
Driving Restrictions: No driving
Bathing Restrictions: OK to Shower
Referrals:
Gabriel Cole MD [Active, Orthopedics] - in two weeks
Referral Note: F/u in office in 2 weeks with repeat x-rays.
Yobani Lovett PA-C [Specified Professional Personl, Surgical] - in one week
Gabriel Santa DO [Family Provider] - in one week
Additional Discharge Medication Instructions: Continue cephalexin till 02/15/25
Prescriptions:
Continued
docusate sodium [Colace] 100 mg Capsule
100 mg PO BID@1200,0000
carbidopa-levodopa 25-100 mg Tablet
1.5 tab PO TID@0400,1199,1999
cholecalciferol (vitamin D3) [Vitamin D3] 50 mcg (2,000 unit) Capsule
100 mcg PO BID@1200,0000
Cimzia 400 mg/2 mL (200 mg/mL x 2) Syringe Kit
400 mg SC Q28D
Saccharomyces boulardii [Florastor] 250 mg capsule
250 mg PO BID Qty: 1 0RF
sennosides [Senokot] 8.6 mg tablet
17.2 mg PO BID Qty: 2 0RF
furosemide 40 mg Tablet
40 mg PO DAILY
polyethylene glycol 3350 [Miralax] 17 gram Powder In Packet
17 g PO DAILY
isosorbide mononitrate 30 mg Tablet Extended Release 24 Hr
30 mg PO DAILY
famotidine 20 mg Tablet
20 mg PO HS
magnesium 250 mg Tablet
250 mg PO DAILY
oxycodone 5 mg tablet
5 mg PO Q6H PRN (Reason: moderate-severe pain) Qty: 5 0RF
Rx Instructions:
Ongoing therapy
POST-OP USE ONLY
oxycodone [OxyContin] 10 mg Tablet,Oral Only,Ext.Rel.12 Hr
10 mg PO TID@0400,1199,1999 Qty: 8 0RF
cephalexin 500 mg Capsule
500 mg PO TID 30 Days Qty: 90 0RF
Eliquis 5 mg Tablet
5 mg PO BID@1200,0000 30 Days Qty: 60 0RF
baclofen 5 mg Tablet
5 mg PO TID PRN (Reason: Muscle tightness) 30 Days Qty: 90 0RF
clopidogrel [Plavix] 75 mg Tablet
75 mg PO NOON Qty: 0 0RF
gabapentin 300 mg capsule
300 mg PO HS 30 Days Qty: 30 0RF
Rx Instructions:
*POST-OP USE ONLY
Discharge Orders:
Discharge Patient (As Directed); Ordered 02/04/25
Ordered By: Sb Bray
Discharge Date and Time
Print Language: [id number]
[2025-02-04] MEDS: COLACE 100 MG PO (11:05)
[2025-02-04] MEDS: PLAVIX 75 MG PO (11:05)
--- NOTE | 2025-02-04 12:40 | CM ---
Satish is cleared for discharge to [facility] today. Transport arranged for 2PM. CM spoke with Satish and called his to make her aware of plan for transfer to [facility]. Pt's and daughter will meet him at [facility] after 5PM this
evening.
[facility] Report: [phone]
[facility]
[2025-02-04 14:31] VITALS: BP 145/70
== END 2025-02-04 14:43 | DRG 560 ==
LOC: 3 WEST ACU 23:45
PROVIDERS: Family Medicine; Registered Nurse; ADMITTING PHYSICIAN Hospitalist; ATTENDING PHYSICIAN Internal Medicine; CONSULT PHYSICIAN Orthopaedic Surgery; CONSULT PHYSICIAN Physical Medicine & Rehabilitation; EMERGENCY PHYSICIAN Emergency Medicine; FAMILY PHYSICIAN Family Medicine
PROC: 3E02340 Introduction of Influenza Vaccine into Muscle, Percutaneous Approach (ICD-10-PCS; 2025-02-01)
DX: T84.023A Instability of internal left knee prosthesis, initial encounter (principal); D68.51 Activated protein C resistance; S72.435A Nondisplaced fracture of medial condyle of left femur, initial encounter for closed fracture; G20.A1 Parkinson's disease without dyskinesia, without mention of fluctuations; I10 Essential (primary) hypertension; Z96.652 Presence of left artificial knee joint; Z87.891 Personal history of nicotine dependence; Z79.01 Long term (current) use of anticoagulants; I25.10 Atherosclerotic heart disease of native coronary artery without angina pectoris; Z95.5 Presence of coronary angioplasty implant and graft; Z86.718 Personal history of other venous thrombosis and embolism; K59.00 Constipation, unspecified; G89.29 Other chronic pain; K59.03 Drug induced constipation; T40.2X5A Adverse effect of other opioids, initial encounter; Z11.52 Encounter for screening for COVID-19; Z79.02 Long term (current) use of antithrombotics/antiplatelets; Z79.891 Long term (current) use of opiate analgesic; X50.1XXA Overexertion from prolonged static or awkward postures, initial encounter; Y84.8 Other medical procedures as the cause of abnormal reaction of the patient, or of later complication, without mention of misadventure at the time of the procedure; Z23 Encounter for immunization
CPT/HCPCS: 29505; 73560; 73564; 73700; 80053; 85025; 85027; 85730; 87811; 90662; 93005; 96365; 97110; 97116; 97163; 97167; 97530; 99285; G0008